=== PATIENT | female | born 1990 | race Two or more races ===

== ENCOUNTER 2024-06-11 13:00 | Outpatient (RCR) | payer MEDICAID, SELFPAY ==
--- NOTE | 2024-05-24 10:18 | PT.ODAYNRPT ---
PT Outpatient Daily Note OP Daily Note Outpatient Physical Therapy Treatment Date: 05/24/24 Visit Reasons: Low back pain Subjective: Pt's back is about the same. Pt has not been able to come consistently due to no physiognomist. Objective: Please see flow chart list of ther ex performed Assessment: tolerate standing extension, however, minimal pain in right LE post exercise Plan: Continue with PT Length of Time (minutes) of Treatment: 30 Minutes Procedure Charges Therapeutic Exercise 30 minutes: Yes
--- NOTE | 2024-05-28 10:30 | PT.ODAYNRPT ---
PT Outpatient Daily Note OP Daily Note Outpatient Physical Therapy Treatment Date: 05/28/24 Visit Reasons: Low back pain Subjective: Pt's back is the same. Pt continues to have pain down the right leg. physical therapy is helping minimally Objective: Please see flow chart for list of ther ex performed Assessment: no change in pain or symptoms post PT session. Pt able to tolerate increase standing extension reps with less reported pain this session Plan: Continue with PT Length of Time (minutes) of Treatment: 30 Minutes Procedure Charges Therapeutic Exercise 30 minutes: Yes
--- NOTE | 2024-06-04 10:23 | PT.ODAYNRPT ---
PT Outpatient Daily Note OP Daily Note Outpatient Physical Therapy Treatment Date: 06/04/24 Visit Reasons: Low back pain Subjective: Pt's back is same. Pt is ready to be release and return back to provider after her last session. Pt mention she breast feed sidelying Objective: Please see flow chart for list of ther ex performed Assessment: minimal progress with physical therapy; patient continues to report of hypomobilty and stiffness. Pt educated to switch position with breast feeding to see if it alleviate back pain Plan: Continue with PT Length of Time (minutes) of Treatment: 30 Minutes Procedure Charges Therapeutic Exercise 30 minutes: Yes
--- NOTE | 2024-06-11 15:26 | PT.ODS1RPT ---
PT OP Progress/Discharge Note Date of Service: 06/11/24 Progress Note/DC Note Progress Note/Discharge Note: DC Note Patient Information Visit Reasons: Low back pain Medical Diagnosis: M54.41 Treatment Dx #1: Back Pain Service Discharge Date: 06/11/24 Status Subjective: Pt's back continues to hurt with pain down the legs. Pt has limitation with standing, walking, chores, taking care of her baby, and recreational activities. Objective: L/S AROM: all motions are WNL Hip PROM: all motions are WFL Hip MMTs: grossly 3+/5 Special Test (+) SLR (+) slump Assessment: Pt continues to have back pain with mobility deficits leading to difficulty with ADLs. Pt will no longer benefit from physical therapy due to minimal progress towards goals. Recommend lumbar spine MRI to help rule in/out nature of pain. Pt was instructed on HEP last session and educated to continue exercises to maintain overall mobility; thank you for your referrals. Plan: D/C home with HEP and follow up with MD GARZA Procedure Charges Therapeutic Exercise 30 minutes: Yes
== END 2024-06-19 23:59 | disposition home or self-care (01) ==
LOC: CPTX 13:00
PROVIDERS: PCP Physician Assistant; Referring Provider Physician Assistant; Visit Provider Physician Assistant
DX: M54.41 Lumbago with sciatica, right side (principal)
CPT/HCPCS: 97110

== ENCOUNTER 2024-09-15 19:42 | Emergency (ER) | payer MEDICAID, SELFPAY ==
--- NOTE | 2024-09-15 19:46 | EKG_ITS ---
[facility] Test Date: 2024-09-15 Pat Name: CLARISSA NELSON Department: Room: - Gender: Female Cephalometric Tracer: : 1990 Requested By: Filemon Barkley Order Number: [id number] Reading MD: Filemon Barkley Measurements Intervals [place] Rate: 61 P: 66 MA: 185 QRS: 44 QRSD: 89 T: 50 QT: 407 QTc: 411 Interpretive Statements SINUS RHYTHM No previous ECG available for comparison /store/S0/[id number]/[id number].pdf
[2024-09-15 19:48] VITALS: BP 157/83; PULSE 68; RESP 19; TEMP 36.6; O2SAT 100; BMI 34.0
--- NOTE | 2024-09-15 19:48 | PD.EDADULT ---
ED General RME/HPI General Chief complaint: Nausea/Vomiting/Diarrhea Stated complaint: ABD PAIN Time Seen by Provider: 09/15/24 19:45 Arrival date/time: 09/15/24 19:42 CC: Abdominal pain with nausea vomiting HPI onset approximately 1 hour ago epigastric pain without any radiation prior history of similar events that went away on their own . Patient denies any active vomiting but is complaining of nausea. The patient's last menstrual cycle was 1 year ago patient stopped breast-feeding 1 week ago with her child. Patient denies fever chills chest pain shortness of breath or difficulty breathing. Related Data Home Medications ?Medication ?Instructions ?Recorded ?Confirmed vits no.124-ferrous fum 1 tab PO QDAY 06/15/23 08/23/23 27 mg iron-folic acid 800 mcg tablet ( Vitamin) Previous Rx's ?Medication ?Instructions ?Recorded meloxicam 7.5 mg tablet 7.5 mg PO QDAY #10 tabs 09/15/24 ondansetron 4 mg disintegrating 4 mg PO Q8H #14 tabs 09/15/24 tablet Allergies Allergy/AdvReac Type Severity Reaction Status Date / Time No Known Allergies Allergy Verified 09/15/24 19:49 Review of Systems Review of Systems Narrative Review of Systems: GEN: No fever, no chills, no weight loss EYES: No discharge, no visual changes, no pain HEENT: No ear pain, no congestion, no sore throat PULM: No shortness of breath, no cough, no congestion CV: No chest pain, no dyspnea on exertion, no palpitations GI: No nausea, no vomiting, no diarrhea, + pain, no constipation : No frequency, no urgency, no dysuria MUSC/SKEL: No joint pain, no back pain SKIN: No rash PSYCH: No hallucinations, no depression HEME/LYMPH: No easy bleeding or bruising tendencies NEURO: No weakness, no headache Past Medical History Past Medical History NEUROLOGIC: Negative Neurological Disorders or Seizures CARDIAC: Negative Cardiac Disorders or Congestive Heart Failure RESPIRATORY: Negative Chronic Obstructive Pulmonary Disease (COPD) or Asthma GASTROINTESTINAL: Negative Gastrointestinal Disorders, Hepatitis or Colorectal Cancer GENITOURINARY: Negative Genitourinary Disorders, Renal Disease or Prostate Cancer REPRODUCTIVE: Positive Genital Herpes and Previous Pregnancies; Negative Breast Cancer, Endometriosis, Pelvic Inflammatory Disease, Testicular Cancer or Uterine Prolapse MUSCULOSKELETAL: Positive Musculoskeletal Disorders; Negative Bone Cancer ENDOCRINE: Negative Endocrine Disorders, Diabetes Mellitus Type 1 or Diabetes Mellitus Type 2 HEMATOLOGIC: Positive Blood Disorders ( HEMORRHAGE), Anemia (12 years old) and Clotting Problems (BLOOD CLOT IN LEG); Negative Leukemia, Hemophilia, Thalassemia or Sickle Cell Disease PSYCHO/SOCIAL: Positive Depression OTHER HISTORY: Positive Chicken Pox (child); Negative Hospitalization, Autoimmune Disease, Down Syndrome, Developmental Delay, Shingles, Falls, Blood Transfusions, Blood Transfusion Reaction, Anesthesia Reactions, Organ Transplant, Chemotherapy, Radiation Therapy, Hyperbaric Therapy, MRSA, VRSA, Vancomycin-Resistant Enterococci, Human Immunodeficiency Virus (HIV), Measles, Mumps, Rubella (English Measles), Pertussis, Clostridium Difficile, Cancer, Breast Cancer, Cervical Cancer, Colorectal Cancer, Lung Cancer, Ovarian Cancer, Prostate Cancer or Testicular Cancer Family History FAMILY HISTORY: Positive Family Cardiac Disorders (MOTHER-HTN); Negative Family Psychiatric Problems, Family Respiratory Disorders, Family Gastrointestinal Problems, Family Cancer, Family Surgery or Family Anesthesia Reaction Surgical History SURGICAL: Positive Oral Surgery (WISDOM TEETH REMOVED 2008); Negative Section or Organ Transplant Social History SMOKING STATUS: Never smoker SECOND HAND EXPOSURE: No ED Exam Narrative Physical exam: [General: In moderate discomfort but not in any acute distress Head normocephalic HEENT: Within acceptable limits Neck is supple nontender Chest equal chest rise nontender to palpation Respiratory: Clear to auscultation no wheezes crackles or rubs CV: Rate rhythm is regular no murmurs rubs or clicks Abdomen profound tenderness with epigastric palpation reflexive guarding no rebound tenderness no left upper or right upper quadrant tenderness with palpation. Back: No CVA tenderness no spinous process tenderness from cervical spine thoracic and lumbar spine Skin: Intact no petechiae rash induration ulceration or crepitus Extremities: Moving all extremity against resistance cap refill less than 2 seconds neurosensory intact Neuro: Awake alert oriented x3 Glascow coma 15 no focal deficits] Course Quality Measures none Orders Category Date Time Status Bedside COVID-19 Antigen Test NOW Care 09/15/24 20:42 Active Bedside Influenza A&B Antigen Test NOW Care 09/15/24 20:42 Completed EKG (ED ONLY) *Do not use* NOW Care 09/15/24 19:46 Completed Saline [Insert IV] NOW Care 09/15/24 19:46 Active EKG (ED Only) Stat Exams 09/15/24 19:46 Draft US gall bladder Stat Exams 09/15/24 20:08 Completed B-Type Natriuretic Peptide Stat Lab 09/15/24 20:00 Completed CBC Stat Lab 09/15/24 20:00 Completed Comprehensive Metabolic Panel Stat Lab 09/15/24 20:00 Completed Drug Screen,Urine Stat Lab 09/15/24 20:47 Completed HCG,Qualitative Serum Stat Lab 09/15/24 20:00 Completed Lipase Stat Lab 09/15/24 20:00 Completed Magnesium Stat Lab 09/15/24 20:00 Completed Partial Thromboplastin Time Stat Lab 09/15/24 20:00 Completed Prothrombin Time with INR Stat Lab 09/15/24 20:00 Completed Urinalysis Stat Lab 09/15/24 20:43 Completed Lidocaine 2% Viscous [Xylocaine 2% Viscous] Med 09/15/24 19:46 Discontinued 15 ml PO X1 ONE Morphine Inj Med 09/15/24 20:51 Discontinued 4 mg IVP X1 ONE Ondansetron Inj [Zofran Inj] Med 09/15/24 19:46 Discontinued 4 mg IV X1 ONE Sodium Chloride 0.9% 1000 ml [Ns] 1,000 ml Med 09/15/24 19:47 Discontinued IV 999 mls/hr mg Hyd/Al Hyd/Myrna Susp [Maalox Susp] Med 09/15/24 19:46 Discontinued 30 ml PO X1 ONE Vital Signs Vital signs: Vital Signs Temperature 97.9 F 09/15/24 19:48 Pulse Rate 68 09/15/24 19:48 Respiratory Rate 19 09/15/24 19:48 Blood Pressure 157/83 H 09/15/24 19:48 Pulse Oximetry (%) 100 09/15/24 19:48 Oxygen Delivery Method Nasal Cannula 09/15/24 19:48 Oxygen Flow Rate 6 09/15/24 19:48 [facility] Patient data External records reviewed:: [facility] previous records and EMS form Clinical information provided by:: patient and EMS Social determinants that could affect healthcare access:: none Patient has the following chronic illnesses:: None How is presenting disease/condition affected by chronic disease/condition?: uneffected by Evaluation data The following diagnostics were reviewed and interpreted by me:: lab results and radiology exam(s) Lab and/or radiology exams considered but not ordered:: EKG performed at 2007 shows ventricular rate of 61 MO interval 185 QRS of 8 9 QTc 410 is normal sinus rhythm. CBC shows no acute leukocytosis anemia thrombocytopenia CMP PE shows potassium of 3.3 mild transaminitis but no T. bili elevation Lipase is 39 Magnesium 2.0 Ultrasound shows the patient has a cholelithiasis without cholecystitis. Interpretation Summary: Cholelithiasis without cystitis. Patient to be discharged home for follow-up Medications Medications considered but not ordered:: None Medication administrations:: Medication Administration History Discontinued Medications Al Hydrox/Mg Hydrox/Simethicone (Mg Hyd/Al Hyd/Myrna (Maalox Reg) Susp 30 Ml Udc) 30 ml PO X1 ONE Stop: 09/15/24 19:47 Last Admin: 09/15/24 20:33 Dose: 30 ml Documented By: SANDER Sodium Chloride (Ns) 1,000 mls @ 999 mls/hr IV .Q1H1M ONE Stop: 09/15/24 20:47 Last Admin: 09/15/24 20:33 Dose: 999 mls/hr Documented By: SANDER Lidocaine HCl (Lidocaine Viscous 2% 15 Ml Udc) 15 ml PO X1 ONE Stop: 09/15/24 19:47 Last Admin: 09/15/24 20:33 Dose: 15 ml Documented By: SANDER Morphine Sulfate (Morphine Sulf Inj 10 Mg/Ml Vial) 4 mg IVP X1 ONE Stop: 09/15/24 20:52 Last Admin: 09/15/24 21:00 Dose: 4 mg Documented By: ALETHEA Comments: Ondansetron HCl (Ondansetron Inj 2 Mg/Ml Inj 2 Ml) 4 mg IV X1 ONE; Protocol Stop: 09/15/24 19:47 Last Admin: 09/15/24 20:33 Dose: 4 mg Documented By: SANDER None Consultations Consultation(s) initiated? (list below): No Diagnosis Differential Diagnosis ED Complaint MDM: Cholelithiasis choledocholithiasis cholecystitis Most likely diagnosis given after review of the tests above:: Cholelithiasis abdominal pain Admission Indicated Admission indicated?: not indicated Explain why admission is indicated or not indicated:: Stable for outpatient follow-up Admission Request Was there a request for admission?: No Disposition Plan Disposition Plan: Discharge Discharge Attestation Discharge Attestation: The patient and all family members were given an opportunity to ask questions and understood the discharge instructions. Discharge instructions specifically effects, indications for sooner follow up or return to the emergency department, and the expected course of current diagnosis. Patient condition: Stable Medical Decision Making Differential Diagnosis Differential Diagnosis: Cholelithiasis choledocholithiasis cholecystitis Lab Data 09/15/24 20:00 09/15/24 20:00 Labs: Lab Results 09/15/24 09/15/24 09/15/24 Range/Units 20:00 20:43 20:47 WBC 10.3 (3.6-11.0) Thou/mm3 RBC 4.68 (4.00-5.20) Miln/mm3 Hgb 14.0 (12.0-16.0) g/dL Hct 40.8 (36.0-46.0) % MCV 87 (80-100) fL MCH 29.9 (25.0-35.0) pg MCHC 34.3 (31.0-37.0) g/dl RDW Std Deviation 39.7 (36.4-46.3) fL Plt Count 231 (140-440) Thou/mm3 Neut % (Auto) 50 (37-80) % Lymph % (Auto) 37 (10-50) % Rowan % (Auto) 10 (0-12) % Eos % (Auto) 2 (0-10) % Baso % (Auto) 0 (0-2.5) % Neut # (Auto) 5.1 (1.8-7.7) Thou/mm3 Lymph # (Auto) 3.8 (1.0-4.8) Thou/mm3 Rowan # (Auto) 1.0 H (0.0-0.8) Thou/mm3 Eos # (Auto) 0.2 (0.0-0.5) Thou/mm3 Baso # (Auto) 0.0 (0.0-0.2) Thou/mm3 Immature Gran # (Auto) 0.02 H (0.00-0.00) Thou/mm3 Absolute Nucleated RBC 0.00 (0.00-0.00) Thou/mm3 Immature Gran % 0 (0-0) % Nucleated RBC % 0 (0) /100 WBC PT 10.9 (9.0-12.2) Seconds INR 1.0 (0.9-1.3) APTT 28.2 (22.0-36.0) Seconds Sodium 141 (136-145) mMol/L Potassium 3.3 L (3.4-5.1) mMol/L Chloride 104 (98-107) mMol/L Carbon Dioxide 27.1 (20.0-31.0) mMol/L Anion Gap 10 (7-16) BUN 17 (9-23) mg/dL Creatinine 0.8 (0.6-1.3) mg/dL Estim Creat Clear Calc 126.2 (>60) mL/min eGFR > 60 (60 - ) See Note BUN/Creatinine Ratio 21 H (12-20) Ratio Glucose 103 (74-106) mg/dL Calculated Osmolality 282 (275-295) Calcium 9.8 (8.3-10.6) mg/dL Corrected Calcium 9.8 (8.5-10.1) mg/dL Magnesium 2.0 (1.6-2.6) mg/dL Total Bilirubin 0.3 (0.3-1.2) mg/dL AST 72 H (0-34) U/L ALT 69 H (10-49) U/L Alkaline Phosphatase 149 H (46-116) U/L B-Natriuretic Peptide < 20 (0-100) pg/mL Total Protein 7.6 (5.7-8.2) gm/dL Albumin 4.6 (3.5-5.0) gm/dL Globulin 3.0 (2.3-3.5) gm/dL Albumin/Globulin Ratio 1.5 (1.2-2.2) Lipase 39 (12-53) U/L HCG, Qual Negative Ur Collection Type Clean Catch Urine Color Lt-Yellow (Lt Yel-Yel) Urine Clarity Clear (Clear/Hazy) Urine pH 8.5 H (5.0-7.0) Ur Specific Randolph 1.025 (1.001-1.035) Urine Protein 1+ A (Neg - Trace) Urine Glucose (UA) Negative (Negative) Urine Ketones Negative (Negative) Urine Blood Negative (Negative) Urine Nitrite Negative (Negative) Urine Bilirubin Negative (Negative) Urine Urobilinogen (Auto) Negative (0.0-1.0) mg/dL Ur Leukocyte Esterase Negative (Negative) Urine RBC 0 (0-3) /hpf Urine WBC 1 (0-5) /hpf Ur Squamous Epith Cells 1 (0-5) /hpf Urine Bacteria None (None) Urine Opiates Screen Negative (Negative) Urine Fentanyl Screen Negative (Negative) Ur Barbiturates Screen Negative (Negative) U Amphetamin/Meth Scrn Negative (Negative) U Benzodiazepines Scrn Negative (Negative) U Cocaine Metab Screen Negative (Negative) U Marijuana (THC) Screen Negative (Negative) Discharge Plan Plan Patient Disposition: HOME (Self Care) Patient condition on transfer: Stable Prescriptions/Referrals Prescriptions/Med Rec: New ondansetron 4 mg tablet,disintegrating 4 mg PO Q8H Qty: 14 0RF meloxicam 7.5 mg tablet 7.5 mg PO QDAY Qty: 10 0RF No Action Vitamin 27 mg iron- 800 mcg Tablet 1 tab PO QDAY Referrals: Murray French MD [Primary Care Provider] - In 1 week Eda Ponce MD [Physician] - In 1 week Problem List Clinical Impression: Abdominal pain, Nausea, Cholelithiasis Patient/Caregiver Discharge Instructions Education Materials: ED Diet, [place] (Adult), ED Gallstones with Biliary Colic Print Language: Setswana Stand Alone Forms: Katina Award Info., Patient Portal Info Letter, Work/School Release PA/[employer] Supervising Physician PA/[employer] Supervising Physician: Filemon Hernandez ENP
[2024-09-15 19:50] VITALS: PULSE 73; RESP 20; BMI 34.0
--- NOTE | 2024-09-15 20:08 | XR_ITS ---
Examination: Abdomen sonogram, Limited Date and time of exam: September 15, 2024 2056 hrs. Indications: Right upper abdominal pain and tenderness today Technique: Real-time ferreira scale transabdominal sonographic images of the upper abdomen obtained. Findings: Gallbladder sludge multiple gallstones Gallbladder wall 0.3 cm Common bile duct 0.2 cm Pancreatic 2.4 cm Liver 20.3 cm fatty infiltration no focal liver lesions Normal hepatopedal portal venous oh Patent IVC Impression: Cholelithiasis, negative for cholecystitis Significant hepatomegaly fatty liver
[2024-09-15 20:14] LABS: Basophils % (Auto) 0 % (0-2.5); Eosinophils # (Auto) 0.2 Thou/mm3 (0.0-0.5); Eosinophils % (Auto) 2 % (0-10); Hematocrit 40.8 % (36.0-46.0); Immature Granulocytes % (Auto) 0 % (0-0); Immature Granulocytes Auto 0.02 Thou/mm3 (0.00-0.00); Lymphocytes # (Auto) 3.8 Thou/mm3 (1.0-4.8); Lymphocytes % (Auto) 37 % (10-50); Mean Corpuscular HGB Conc 34.3 g/dl (31.0-37.0); Mean Corpuscular Hemoglobin 29.9 pg (25.0-35.0); Mean Corpuscular Volume 87 fL (80-100); Monocytes % (Auto) 10 % (0-12); Neutrophils # (Auto) 5.1 Thou/mm3 (1.8-7.7); Neutrophils % (Auto) 50 % (37-80); Nucleated Red Blood Cell % 0 /100 WBC (0); Platelet Count 231 Thou/mm3 (140-440); RDW Standard Deviation 39.7 fL (36.4-46.3); Red Blood Count 4.68 Miln/mm3 (4.00-5.20); White Blood Count 10.3 Thou/mm3 (3.6-11.0)
[2024-09-15 20:31] LABS: B-Type Natriuretic Peptide < 20 pg/mL (0-100)
[2024-09-15 20:32] LABS: Alanine Aminotransferase 69 U/L (10-49); Albumin, Serum 4.6 gm/dL (3.5-5.0); Albumin/Globulin Ratio 1.5 (1.2-2.2); Alkaline Phosphatase 149 U/L (46-116); Anion Gap 10 (7-16); Aspartate Amino Transferase 72 U/L (0-34); BUN/Creatinine Ratio 21 Ratio (12-20); Bilirubin,Total 0.3 mg/dL (0.3-1.2); Blood Urea Nitrogen 17 mg/dL (9-23); Calcium 9.8 mg/dL (8.3-10.6); Calcium (Corrected) 9.8 mg/dL (8.5-10.1); Carbon Dioxide 27.1 mMol/L (20.0-31.0); Chloride 104 mMol/L (98-107); Creatinine (Component) 0.8 mg/dL (0.6-1.3); Estimated Creatinine Clearance 126.2 mL/min (>60); Glucose 103 mg/dL (74-106); Lipase 39 U/L (12-53); Osmolality,Calculated 282 (275-295); Potassium 3.3 mMol/L (3.4-5.1); Sodium 141 mMol/L (136-145); Total Protein 7.6 gm/dL (5.7-8.2); eGFR > 60 See Note
[2024-09-15] MEDS: LIDOCAINE VISCOUS 2% 15 ML UDC PO (20:33)
[2024-09-15] MEDS: SODIUM CHLORIDE 0.9% 1000 ML 1,000 ML 999 ML IV (20:33)
[2024-09-15] MEDS: ONDANSETRON INJ 2 MG/ML INJ 2 ML 4 MG IV (20:33)
[2024-09-15] MEDS: MG HYD/AL HYD/SIME (Maalox Reg) SUSP 30 ML UDC PO (20:33)
[2024-09-15 20:48] LABS: HCG,Qualitative Serum Negative
[2024-09-15 20:50] LABS: Collection Type, Urine Clean Catch; RBC,Urine 0 /hpf (0-3)
[2024-09-15 20:59] LABS: Partial Thromboplastin Time 28.2 Seconds (22.0-36.0); Prothrombin Time 10.9 Seconds (9.0-12.2)
[2024-09-15 20:59] LABS: Bilirubin,Urine Negative (Negative); Blood,Urine Negative (Negative); Clarity,Urine Clear (Clear/Hazy); Color,Urine Lt-Yellow (Lt Yel-Yel); Glucose, Urine Negative (Negative); Ketones,Urine Negative (Negative); Leukocyte Esterase,Urine Negative (Negative); Nitrite,Urine Negative (Negative); PH,Urine 8.5 (5.0-7.0); Protein,Urine 1+ (Neg - Trace); Specific Gravity,Urine 1.025 (1.001-1.035); Squamous Epithelial Cell,Urine 1 /hpf (0-5); Urobilinogen,Urine Negative mg/dL (0.0-1.0); WBC,Urine 1 /hpf (0-5)
[2024-09-15] MEDS: MORPHINE SULF INJ 10 MG/ML VIAL 4 MG IVP (21:00)
[2024-09-15 21:01] LABS: Amphetamine/Methamp Scrn,U Negative (Negative); Barbiturate Screen,Urine Negative (Negative); Benzodiazepines Screen,Urine Negative (Negative); Benzoylecgonine Screen, Ur Negative (Negative); Fentanyl Screen,Urine Negative (Negative); Opiate Screen,Urine Negative (Negative); THC Screen,Urine Negative (Negative)
[2024-09-15 22:15] VITALS: BP 131/85; PULSE 53; RESP 17; TEMP 36.6; O2SAT 97
[2024-09-15] MEDS: METOCLOPRAMIDE INJ 5 MG/ML VIAL 2 ML 10 MG IM (22:57)
== END 2024-09-15 23:42 | disposition home or self-care (01) ==
PROVIDERS: Registered Nurse General Practice; Emergency Provider Emergency Medicine; PCP Family Medicine
DX: K80.70 Calculus of gallbladder and bile duct without cholecystitis without obstruction (principal)
CPT/HCPCS: 36415; 76705; 80053; 80307; 81001; 83690; 83735; 83880; 84703; 85025; 85610; 85730; 87400; 87811; 96361; 96372; 96374; 96375; 99284; J2270; J2405; J2765; J3490; J7030; A9270

== ENCOUNTER 2024-09-17 15:08 | Day surgery (SDC) | payer MEDICAID, SELFPAY ==
[2024-09-17 15:09] VITALS: BMI 34.0
[2024-09-17 15:25] VITALS: BP 151/99; PULSE 73; RESP 24; TEMP 36.7; O2SAT 99
--- NOTE | 2024-09-17 15:42 | XR_ITS ---
Examination: Abdomen sonogram, Limited Date and time of exam: September 09, 2024 at 1600 hrs. Indications: Severe right upper abdominal pain and tenderness beginning 4 days ago worse today Technique: Real-time ferreira scale transabdominal sonographic images of the upper abdomen obtained. Findings: Multiple gallstones Gallbladder wall 0.3 cm Gallbladder sludge Common bile duct 0.4 cm Pancreatic head 2.9 cm Liver 17.6 cm fatty infiltration smooth contour no focal liver lesions Normal hepatopedal portal venous flow Patent IVC Impression: Cholelithiasis, negative for cholecystitis Mild hepatomegaly fatty liver
--- NOTE | 2024-09-17 15:43 | PD.EDRME ---
Rapid Medical Screening Exam RME Arrival date/time: 09/17/24 15:08 34-year-old female with no known medical history presents to the emergency room with a chief complaint of right upper quadrant 10 out of 10 abdominal pain, nausea. Patient was seen here 2 days ago and was discharged with gallstones. I have greeted and performed a focused initial assessment of this patient. A comprehensive ED assessment and evaluation of the patient, analysis of all test results, and completion of the medical decision making process will be conducted by additional ED providers. Vital signs: Vital Signs Temperature 98.1 F 09/17/24 15:25 Pulse Rate 73 09/17/24 15:25 Respiratory Rate 24 H 09/17/24 15:25 Blood Pressure 151/99 H 09/17/24 15:25 Pulse Oximetry (%) 99 09/17/24 15:25 Oxygen Delivery Method Room Air 09/17/24 15:25 Vital signs reviewed by provider: Yes
[2024-09-17] MEDS: KETOROLAC INJ 60 MG/2 ML VIAL 30 MG IM (15:57)
[2024-09-17] MEDS: ONDANSETRON ODT 4 MG TABRAP PO (15:57)
[2024-09-17 16:11] LABS: Collection Type, Urine Clean Catch
[2024-09-17 16:15] LABS: Basophils % (Auto) 0 % (0-2.5); Eosinophils # (Auto) 0.1 Thou/mm3 (0.0-0.5); Eosinophils % (Auto) 1 % (0-10); Hemoglobin 14.4 g/dL (12.0-16.0); Immature Granulocytes % (Auto) 0 % (0-0); Immature Granulocytes Auto 0.03 Thou/mm3 (0.00-0.00); Lymphocytes # (Auto) 2.8 Thou/mm3 (1.0-4.8); Lymphocytes % (Auto) 22 % (10-50); Mean Corpuscular HGB Conc 34.3 g/dl (31.0-37.0); Mean Corpuscular Hemoglobin 29.7 pg (25.0-35.0); Mean Corpuscular Volume 87 fL (80-100); Monocytes # (Auto) 1.2 Thou/mm3 (0.0-0.8); Monocytes % (Auto) 10 % (0-12); Neutrophils # (Auto) 8.2 Thou/mm3 (1.8-7.7); Neutrophils % (Auto) 66 % (37-80); Nucleated Red Blood Cell % 0 /100 WBC (0); Platelet Count 243 Thou/mm3 (140-440); RDW Standard Deviation 39.8 fL (36.4-46.3); Red Blood Count 4.85 Miln/mm3 (4.00-5.20); White Blood Count 12.4 Thou/mm3 (3.6-11.0)
[2024-09-17 16:22] LABS: HCG Qualitative,Urine Negative
[2024-09-17 16:31] LABS: Bilirubin,Urine Negative (Negative); Blood,Urine Negative (Negative); Clarity,Urine Turbid (Clear/Hazy); Color,Urine Lt-Yellow (Lt Yel-Yel); Glucose, Urine Negative (Negative); Ketones,Urine Negative (Negative); Leukocyte Esterase,Urine Negative (Negative); Nitrite,Urine Negative (Negative); Protein,Urine Negative (Neg - Trace); RBC,Urine 3 /hpf (0-3); Specific Gravity,Urine 1.013 (1.001-1.035); Squamous Epithelial Cell,Urine 6 /hpf (0-5); Urobilinogen,Urine Negative mg/dL (0.0-1.0); WBC,Urine 3 /hpf (0-5)
[2024-09-17 16:35] LABS: Alanine Aminotransferase 201 U/L (10-49); Albumin, Serum 4.8 gm/dL (3.5-5.0); Albumin/Globulin Ratio 1.5 (1.2-2.2); Alkaline Phosphatase 155 U/L (46-116); Anion Gap 10 (7-16); Aspartate Amino Transferase 217 U/L (0-34); BUN/Creatinine Ratio 17 Ratio (12-20); Blood Urea Nitrogen 15 mg/dL (9-23); Calcium 10.3 mg/dL (8.3-10.6); Calcium (Corrected) 10.3 mg/dL (8.5-10.1); Carbon Dioxide 27.7 mMol/L (20.0-31.0); Chloride 106 mMol/L (98-107); Creatinine (Component) 0.9 mg/dL (0.6-1.3); Estimated Creatinine Clearance 112.2 mL/min (>60); Globulin 3.1 gm/dL (2.3-3.5); Glucose 107 mg/dL (74-106); Lipase 42 U/L (12-53); Osmolality,Calculated 287 (275-295); Potassium 3.4 mMol/L (3.4-5.1); Sodium 144 mMol/L (136-145); Total Protein 7.9 gm/dL (5.7-8.2); eGFR > 60 See Note
[2024-09-17] MEDS: HYDROcodone/APAP 5/325 TABLET 1 TAB PO (16:58)
--- NOTE | 2024-09-17 19:32 | EDNOTE_ITS ---
ED Abdominal Pain RME/HPI General Chief Complaint: Abdominal Pain Stated complaint: ABD PAIN SINCE 100 TODAY, HX GALL STONES Time seen by provider: 09/17/24 16:58 Arrival date/time: 09/17/24 15:08 This is a 34-year-old female presented to the emergency department with complaints of right upper quadrant abdominal pain that worsened around 10 AM. She does report history of cholelithiasis. She was recently evaluated in the emergency department on 225 was discharged with a diagnosis of cholelithiasis no cholecystitis. Was instructed to follow-up with her PCP. She does report she was seen her PCP however the pain worsened. Reports she began to have nausea and vomiting prompting her ED visit on the second occasion. She denies having fever or chills. Source: patient RME / HPI RME / HPI narrative: 09/17/24 15:08 34-year-old female with no known medical history presents to the emergency room with a chief complaint of right upper quadrant 10 out of 10 abdominal pain, nausea. Patient was seen here 2 days ago and was discharged with gallstones. I have greeted and performed a focused initial assessment of this patient. A comprehensive ED assessment and evaluation of the patient, analysis of all test results, and completion of the medical decision making process will be conducted by additional ED providers. Related Data Home Medications ?Medication ?Instructions ?Recorded ?Confirmed vits no.124-ferrous fum 1 tab PO QDAY 3 08/23/23 27 mg iron-folic acid 800 mcg tablet ( Vitamin) Previous Rx's ?Medication ?Instructions ?Recorded meloxicam 7.5 mg tablet 7.5 mg PO QDAY #10 tabs 08/22 01/12 ondansetron 4 mg disintegrating 4 mg PO Q8H #14 tabs 0 09/15/24 tablet hydrocodone 5 mg-acetaminophen 325 1 tab PO Q6H PRN pa in #20 tabs 09/18/24 mg tablet Allergies Allergy/AdvReac Type Severity Reaction Status Date / Time No Known Allergies Allergy Verified 09/19/24 13:32 Review of Systems Review of Systems Systems Reviewed: All systems reviewed, normal except as documented Narrative Review of Systems: Gen: No fever, no chills, no weight loss EYES: No discharge, no visual changes, no pain HEENT: No ear pain, no congestion, no sore throat PULM: No shortness of breath, no cough, no congestion CV: No chest pain, no dyspnea on exertion, no palpitations GI: Positive nausea, positive vomiting, no diarrhea, abdominal pain, no constipation : No frequency, no urgency, no dysuria Musc/skel: No joint pain, no back pain Skin: No rash Psyc: No hallucinations, no depression Heme/Lymph: No easy bleeding or bruising tendencies Neuro: No weakness, no headache ED Exam Narrative Physical exam: General: 34-year-old female in mild distress due to pain actively vomiting during my examination HENT: normocephalic, atraumatic, EOMI, PERRLA, moist mucous membranes Chest: chest wall is nontender Cardiac: regular rate and rhythm, normal S1 and S2, no murmurs, rubs, or gallops, capillary refill ?2 seconds Pulmonary: clear to auscultation bilaterally, no wheezing, crackles, or rhonchi Abdominal: active bowel sounds, soft, epigastric right upper quadrant tenderness. Neuro: A&OX3, CN II-XII intact, sensation grossly intact bilaterally in UE and LE. Skin: no rashes, no ecchymosis Ext: no lower extremity edema Course Quality Measures none Orders Category Date Time Status Patient Condition Routine Admission 09/18/24 10:[address] in Surgical Day Care Routine Admission 09/18/24 10:01 Active Activity as Tolerated Routine Care 09/18/24 10:01 Ordered DC Home When Criteria Met . Care 09/18/24 12:22 Completed Insert IV NOW Care 09/17/24 19:27 Completed MRI Screening NOW Care 09/17/24 19:28 Completed NPO NOW Care 09/18/24 10:02 Completed Obtain Written Consent For: NOW Care 09/18/24 10:01 Completed Diet NPO (NOW) Diet 09/18/24 10:02 Active Discharge Routine Discharge 09/18/24 13:43 Active MR MRCP Stat Exams 09/18/24 Completed US gall bladder Stat Exams 09/17/24 15:42 Completed CBC Stat Lab 09/17/24 15:55 Completed CMP [Comprehensive Metabolic Panel] Stat Lab 09/17/24 15:55 Completed HCG Qualitative,Urine Stat Lab 09/17/24 14:57 Completed Lipase Stat Lab 09/17/24 15:55 Completed UA [Urinalysis] Stat Lab 09/17/24 14:57 Completed Urine Culture Stat Lab 09/17/24 14:57 Completed Acetaminophen Ivpb [Ofirmev Inj] Med 09/18/24 12:23 Discontinued 1,000 mg in 100 ml IV Q6HR Bupivacaine Mpf/Epi 0.5% [Sensorcaine-Mpf Inj 0.5% w/ Med 09/18/24 12:00 Discontinued Epi] 30 ml .ROUTE .STK-MED ONE Dexamethasone Inj [Decadron Inj] Med 09/18/24 12:13 Discontinued 10 mg .ROUTE .STK-MED ONE HYDROcodone*/APAP 5/325 [[place] 5/325] Med 09/17/24 15:42 Discontinued 1 tab PO X1 ONE HYDROmorphone INJ [Dilaudid Inj] Med 09/18/24 12:22 Discontinued 0.4 mg IV Q5M PRN Ketorolac Inj [Toradol Inj] Med 09/18/24 12:13 Discontinued 30 mg .ROUTE .STK-MED ONE Ketorolac Inj [Toradol Inj] Med 09/17/24 15:44 Discontinued 30 mg IM X1 ONE Midazolam Inj [Versed Inj] Med 09/18/24 12:10 Discontinued 2 mg .ROUTE .STK-MED ONE Morphine Inj Med 09/18/24 12:22 Discontinued 3 mg IV Q5M PRN Morphine Inj Med 09/17/24 19:27 Discontinued 5 mg IVP X1 ONE Ondansetron Inj [Zofran Inj] Med 09/18/24 12:13 Discontinued 4 mg .ROUTE .STK-MED ONE Ondansetron Inj [Zofran Inj] Med 09/17/24 19:27 Discontinued 4 mg IV X1 ONE Ondansetron Inj [Zofran Inj] Med 09/18/24 10:13 Discontinued 4 mg IV X1 ONE Ondansetron Inj [Zofran Inj] Med 09/18/24 12:22 Discontinued 4 mg IV X1 ONE Ondansetron Odt [Zofran Odt] Med 09/17/24 15:42 Discontinued 4 mg PO X1 ONE Propofol Inj [Diprivan Inj] Med 09/18/24 12:10 Discontinued 200 mg IV .STK-MED ONE Sodium Chloride 0.9% 1000 ml [Ns] 1,000 ml Med 09/18/24 10:15 Discontinued IV 100 mls/hr Sodium Chloride 0.9% 1000 ml [Ns] 1,000 ml Med 09/17/24 19:27 Discontinued IV 999 mls/hr Sugammadex Inj [Bridion Inj] Med 09/18/24 12:10 Discontinued 200 mg .ROUTE .STK-MED ONE fentaNYL INJ [Sublimaze Inj] Med 09/18/24 12:10 Discontinued 100 mcg .ROUTE .STK-MED ONE fentaNYL INJ [Sublimaze Inj] Med 09/18/24 12:22 Discontinued 25 mcg IV Q5M PRN Code Status Routine Oth 09/18/24 10:01 Completed Oxygen Delivery PRN RT 09/18/24 12:22 Completed Vital Signs Vital signs: Vital Signs Temperature 98.1 F 09/17/24 15:25 Pulse Rate 73 09/17/24 15:25 Respiratory Rate 24 H 09/17/24 15:25 Blood Pressure 151/99 H 09/17/24 15:25 Pulse Oximetry (%) 99 09/17/24 15:25 Oxygen Delivery Method Room Air 09/17/24 15:25 Abdominal Pain MDM Patient data External records reviewed:: [facility] previous records Clinical information provided by:: patient Social determinants that could affect healthcare access:: none Patient has the following chronic illnesses:: No chronic history How is presenting disease/condition affected by chronic disease/condition?: no chronic disease Evaluation data The following diagnostics were reviewed and interpreted by me:: lab results and radiology exam(s) Lab and/or radiology exams considered but not ordered:: No Interpretation Summary: see above Medications / Prescriptions Medications or Prescriptions considered but not ordered:: No Medication administrations:: Medication Administration History Discontinued Medications Hydrocodone Bitart/Acetaminophen (Hydrocodone/Apap 5/325 Tablet) 1 tab PO X1 ONE Stop: 09/17/24 15:43 Last Admin: 09/17/24 16:58 Dose: 1 tab Documented By: BD Bupivacaine HCl/Epinephrine Bitart (Bupivacaine Mpf/Epi 0.5% 30 Ml Vial 1:200,000) Confirm Administered Dose 30 ml .ROUTE .STK-MED ONE Stop: 09/18/24 12:01 Dexamethasone Sodium Phosphate (Dexamethasone Sod Phos Inj 10 Mg/Ml Vial) Confirm Administered Dose 10 mg .ROUTE .STK-MED ONE Stop: 09/18/24 12:14 Fentanyl Citrate (Fentanyl Cit Inj 50 Mcg/Ml Amp 2ml) Confirm Administered Dose 100 mcg .ROUTE .STK-MED ONE Stop: 09/18/24 12:11 Fentanyl Citrate (Fentanyl Cit Inj 50 Mcg/Ml Amp 2ml) 25 mcg IV Q5M PRN PRN Reason: PAIN SCALE 1-3 (mild Stop: 09/18/24 14:23 Hydromorphone HCl (Hydromorphone Inj 2 Mg/Ml Vial) 0.4 mg IV Q5M PRN PRN Reason: PAIN SCALE 7-10 (Severe Stop: 09/18/24 14:23 Last Admin: 09/18/24 14:39 Dose: 0.4 mg Documented By: ROSANNE Sodium Chloride (Ns) 1,000 mls @ 999 mls/hr IV .Q1H1M ONE Stop: 09/17/24 20:27 Last Infusion: 09/17/24 22:23 Dose: Infused Documented By: Admin: 09/17/24 20:37 Dose: 999 mls/hr Documented By: GREGG Sodium Chloride (Ns) 1,000 mls @ 100 mls/hr IV .Q10H GARCIA Stop: 10/18/24 10:14 Last Admin: 09/18/24 10:22 Dose: 100 mls/hr Documented By: LIAM Acetaminophen (Ofirmev Inj) 1,000 mg in 100 mls @ 250 mls/hr IV Q6HR GARCIA Stop: 09/19/24 06:23 Last Admin: 09/18/24 14:25 Dose: 250 mls/hr Documented By: ROSANNE Ketorolac Tromethamine (Ketorolac Inj 60 Mg/2 Ml Vial) 30 mg IM X1 ONE Stop: 09/17/24 15:45 Last Admin: 09/17/24 15:57 Dose: 30 mg Documented By: [facility] Ketorolac Tromethamine (Ketorolac Inj 30 Mg/Ml Vial) Confirm Administered Dose 30 mg .ROUTE .STK-MED ONE Stop: 09/18/24 12:14 Midazolam HCl (Midazolam Inj 1 Mg/Ml Vial 2 Ml) Confirm Administered Dose 2 mg .ROUTE .STK-MED ONE Stop: 09/18/24 12:11 Morphine Sulfate (Morphine Sulf Inj 10 Mg/Ml Vial) 5 mg IVP X1 ONE Stop: 09/17/24 19:28 Last Admin: 09/17/24 20:36 Dose: 5 mg Documented By: GREGG Morphine Sulfate (Morphine Sulf Inj 10 Mg/Ml Vial) 3 mg IV Q5M PRN PRN Reason: PAIN SCALE 4-6 (Moderate Stop: 09/18/24 14:23 Ondansetron HCl (Ondansetron Odt 4 Mg Tabrap) 4 mg PO X1 ONE; Protocol Stop: 09/17/24 15:43 Last Admin: 09/17/24 15:57 Dose: 4 mg Documented By: MARYSOL Ondansetron HCl (Ondansetron Inj 2 Mg/Ml Inj 2 Ml) 4 mg IV X1 ONE; Protocol Stop: 09/17/24 19:28 Last Admin: 09/17/24 20:36 Dose: 4 mg Documented By: GREGG Ondansetron HCl (Ondansetron Inj 2 Mg/Ml Inj 2 Ml) 4 mg IV X1 ONE; Protocol Stop: 09/18/24 10:14 Last Admin: 09/18/24 10:21 Dose: 4 mg Documented By: LIAM Ondansetron HCl (Ondansetron Inj 2 Mg/Ml Inj 2 Ml) 4 mg IV X1 ONE Stop: 09/18/24 12:23 Last Admin: 09/18/24 14:21 Dose: 4 mg Documented By: ROSANNE Ondansetron HCl (Ondansetron Inj 2 Mg/Ml Inj 2 Ml) Confirm Administered Dose 4 mg .ROUTE .STK-MED ONE Stop: 09/18/24 12:14 Propofol (Propofol Inj 10 Mg/Ml Vial 20 Ml) Confirm Administered Dose 200 mg IV .STK-MED ONE Stop: 09/18/24 12:11 Sugammadex Sodium (Sugammadex Inj 100 Mg/Ml 2ml Vial) Confirm Administered Dose 200 mg .ROUTE .STK-MED ONE Stop: 09/18/24 12:11 All medications administered and effective Consultations Consultation(s) initiated? (list below): Yes Consultation #1 (Physician, Specialty, Details): Consulted with on-call general surgery Dr Bonilla Case discussed. 1945-Dr Irene HERZOG at patient bedside examining patient. Recommends that patient have an MRCP control pain. Will see the patient in the a.m. for possible cholecystectomy. Diagnosis Differential diagnosis abdominal pain: abdominal pain, acute appendicitis, calculus of kidney, constipation, gastroenteritis and other (Lithiasis, choledocholithiasis) Most likely diagnosis given after review of the tests above:: Cholelithiasis Admission Indicated Admission indicated?: indicated Explain why admission is indicated or not indicated:: Awaiting for MRCP. Admission Request Was there a request for admission?: No Disposition Plan Disposition Plan: other (specify) Discharge Plan Plan Patient Disposition: Admit Acute Care w/in Hospital Problem List Clinical Impression: Choledocholithiasis Patient/Caregiver Discharge Instructions Discharge Activity: activity as tolerated
[2024-09-17 20:00] VITALS: BP 130/85; PULSE 53; RESP 18; TEMP 36.8; O2SAT 97
[2024-09-17] MEDS: ONDANSETRON INJ 2 MG/ML INJ 2 ML 4 MG IV (20:36)
[2024-09-17] MEDS: MORPHINE SULF INJ 10 MG/ML VIAL 5 MG IVP (20:36)
[2024-09-17] MEDS: SODIUM CHLORIDE 0.9% 1000 ML 1,000 ML 999 ML IV (20:37)
--- NOTE | 2024-09-17 22:03 | PD.EDADDENDU ---
Emergency Room Addendum <Heidi French - Last Filed: 09/18/24 03:53> Addendum Narrative: 2199: Care assumed from Nomra Baum NP. Past medical, surgical, social and family history reviewed. Vitals and home medications reviewed. Results and treatment plan discussed. I will assume the care of the patient at this time and will follow the patient, pending MRCP in the AM. Please refer to the emergency department record for history and examination from initial visit. The patient was placed in ED observation care at 09/17/24 at 2200 hours. The patient was placed in ED observation care because of pending MRCP in the AM. The patients past medical history, social history, and family history were reviewed. 0600: Care signed out to Dr. Tapia (emergency physician). Past medical, surgical, social and family history reviewed. Vitals and home medications reviewed. Results and treatment plan discussed. They will assume the care of the patient at this time and will follow the patient, pending MRCP in the AM. At this time, observation has ended. <Katt Perez MD - Last Filed: 09/18/24 04:04> Addendum Narrative: 2199: Care assumed from Norma Baum NP. Past medical, surgical, social and family history reviewed. Vitals and home medications reviewed. Results and treatment plan discussed. I will assume the care of the patient at this time and will follow the patient, pending MRCP in the AM. Please refer to the emergency department record for history and examination from initial visit. In Summary: 34-year-old female with history of cholelithiasis presenting to the emergency department with right upper quadrant pain. Ultrasound shows sludge. Per the nurse practitioner Dr. Shabazz evaluated the patient with her, and recommended an MRCP The patient was placed in ED observation care at 09/17/24 at 2200 hours. The patient was placed in ED observation care because of pending MRCP in the AM. The patients past medical history, social history, and family history were reviewed. 0600: Care signed out to Dr. Tapia (emergency physician). Past medical, surgical, social and family history reviewed. Vitals and home medications reviewed. Results and treatment plan discussed. They will assume the care of the patient at this time and will follow the patient, pending MRCP in the AM. At this time, observation has ended.
[2024-09-17 22:17] VITALS: BP 144/84; PULSE 49; RESP 11; O2SAT 97
[2024-09-17 22:21] VITALS: BP 144/84; PULSE 50; RESP 16; O2SAT 98
[2024-09-17 23:00] VITALS: BP 135/86; PULSE 50; RESP 13; O2SAT 97
[2024-09-17 23:27] VITALS: BP 119/80; PULSE 86; RESP 18; TEMP 36.6; O2SAT 96
[2024-09-18] VITALS (15 sets, daily range): BP systolic 116–177; BP diastolic 71–96; PULSE 52–80; RESP 12–18; TEMP 36.1–36.8; O2SAT 95–100
--- NOTE | 2024-09-18 | XR_ITS ---
MRI abdomen, without contrast. MRCP Date and time of exam: September 18, 2024 at 1847 hrs. Indications: Elevated liver enzymes with abdominal pain beginning 4 days ago, gallstones on gallbladder sonogram September 17, 2024 Technique: Multiple axial and coronal images of the abdomen have been obtained with the Siemens 1.5T MRI scanner. Images obtained included T1 weighted transverse images, T2-weighted transverse images, T2-weighted transverse images fat-suppressed, T2 weighted haste fat suppressed transverse images, T1 weighted images, in and out of phase images, T2-weighted coronal images, breath hold, T2 weighted haze coronal images as well as T2 weighted coronal thick slab images, MRCP. Findings: No focal liver lesions Multiple tiny gallstones, no gallbladder wall thickening or edema Common hepatic duct common bile duct normal size no stones No peripancreatic edema No dilated pancreatic duct Liver measures 18 cm, spleen measures 12 cm No hydronephrosis No ascites Aorta normal size Impression: Cholelithiasis, negative for cholecystitis Normal sized common hepatic common bile duct No common hepatic or common bile duct stones Negative for pancreatitis
--- NOTE | 2024-09-18 02:00 | PC.NURSE ---
pt asleep. VS are stable.
--- NOTE | 2024-09-18 05:30 | PC.NURSE ---
pt woke up. denies pain and appears in NAD.
--- NOTE | 2024-09-18 09:43 | PC.NURSE ---
DR HERZOG HERE TO EVALUATE PT.
--- NOTE | 2024-09-18 10:15 | EDNOTE_ITS ---
Emergency Room Addendum Addendum Narrative: 0600: Care assumed from Dr. Perez, the previous shift emergency physician. Past medical, surgical, social and family history reviewed. Vitals and home medications reviewed. I will assume the care of the patient at this time, pending MRCP and final disposition. Please refer to the emergency department record for history and examination from initial visit.? Physical exam by me shows patient under no acute distress at this time. 1000: Discussed test HPI, PMHx, lab, radiology results and/or management with Dr. Shabazz. Will take patient to the [facility]. Patient accepted. RADIOLOGY Procedure(s): MR MRCP Accession Number(s): [id number] cc: Murray French MD; Brando Allen MD; Sarika ([facility])Norma~ MRI abdomen, without contrast. MRCP Date and time of exam: September 18, 2024 at 1847 hrs. Indications: Elevated liver enzymes with abdominal pain beginning 4 days ago, gallstones on gallbladder sonogram September 17, 2024 Technique: Multiple axial and coronal images of the abdomen have been obtained with the Siemens 1.5T MRI scanner. Images obtained included T1 weighted transverse images, T2-weighted transverse images, T2-weighted transverse images fat-suppressed, T2 weighted haste fat suppressed transverse images, T1 weighted images, in and out of phase images, T2-weighted coronal images, breath hold, T2 weighted haze coronal images as well as T2 weighted coronal thick slab images, MRCP. Findings: No focal liver lesions Multiple tiny gallstones, no gallbladder wall thickening or edema Common hepatic duct common bile duct normal size no stones No peripancreatic edema No dilated pancreatic duct Liver measures 18 cm, spleen measures 12 cm No hydronephrosis No ascites Aorta normal size Impression: Cholelithiasis, negative for cholecystitis Normal sized common hepatic common bile duct No common hepatic or common bile duct stones Negative for pancreatitis Dictated By: Brando Allen MD
[2024-09-18] MEDS: ONDANSETRON INJ 2 MG/ML INJ 2 ML 4 MG IV ×2 (10:21→14:21)
[2024-09-18] MEDS: SODIUM CHLORIDE 0.9% 1000 ML 1,000 ML 100 ML IV (10:22)
--- NOTE | 2024-09-18 12:08 | PD.SURHP ---
HPI Date of Admission 09/18/2024 Chief Complaint Chief Complaint: Patient is admitted to the surgical outpatient section because of cholelithiasis and possible common bile duct stone and cholecystitis HPI History of present illness revealed that the patient was in her usual health until last Friday on 15 September. She came to the emergency room because of severe pain in the upper abdomen radiating to the right side. At the time workup revealed gallstones the patient was discharged after the pain improved with morphine. She was going to be followed by her family physician but she came back on Friday with severe pain once again similar to on . The pain was persistent and a surgical consultation was obtained. But the patient had elevated liver enzymes. And therefore MRCP was recommended which revealed no common bile duct stone. Patient denies having any gallstones prior to this episode this week.. She denies any jaundice or fever or chills. Her mother had gallstones removed. Patient has had 5 children in the last one 1 year ago was by section. She also had a lesion removed from the right side of the chest about 4 years ago. Patient used to weigh a lot more in the past and now is weighing about 230 pounds Past Medical History Past Medical History NEUROLOGIC: Negative Neurological Disorders or Seizures CARDIAC: Negative Cardiac Disorders or Congestive Heart Failure RESPIRATORY: Negative Respiratory Disorders, Chronic Obstructive Pulmonary Disease (COPD) or Asthma GASTROINTESTINAL: Negative Gastrointestinal Disorders, Hepatitis or Colorectal Cancer GENITOURINARY: Negative Genitourinary Disorders, Renal Disease or Prostate Cancer REPRODUCTIVE: Positive Genital Herpes and Previous Pregnancies; Negative Breast Cancer, Endometriosis, Pelvic Inflammatory Disease, Testicular Cancer or Uterine Prolapse MUSCULOSKELETAL: Positive Musculoskeletal Disorders; Negative Bone Cancer ENDOCRINE: Negative Endocrine Disorders, Diabetes Mellitus Type 1 or Diabetes Mellitus Type 2 HEMATOLOGIC: Positive Blood Disorders ( HEMORRHAGE), Anemia (12 years old) and Clotting Problems (BLOOD CLOT IN LEG); Negative Leukemia, Hemophilia, Thalassemia or Sickle Cell Disease PSYCHO/SOCIAL: Positive Depression OTHER HISTORY: Positive Chicken Pox (child); Negative Hospitalization, Autoimmune Disease, Down Syndrome, Developmental Delay, Shingles, Falls, Blood Transfusions, Blood Transfusion Reaction, Anesthesia Reactions, Organ Transplant, Chemotherapy, Radiation Therapy, Hyperbaric Therapy, MRSA, VRSA, Vancomycin-Resistant Enterococci, Human Immunodeficiency Virus (HIV), Measles, Mumps, Rubella (English Measles), Pertussis, Clostridium Difficile, Cancer, Breast Cancer, Cervical Cancer, Colorectal Cancer, Lung Cancer, Ovarian Cancer, Prostate Cancer or Testicular Cancer Family History FAMILY HISTORY: Positive Family Cardiac Disorders (MOTHER-HTN); Negative Family Psychiatric Problems, Family Respiratory Disorders, Family Gastrointestinal Problems, Family Cancer, Family Surgery or Family Anesthesia Reaction Surgical History SURGICAL: Positive Oral Surgery (WISDOM TEETH REMOVED 2008); Negative Section or Organ Transplant Social History SMOKING STATUS: Never smoker SECOND HAND EXPOSURE: No Meds Home Medications and Allergies Home Medications ?Medication ?Instructions ?Recorded ?Confirmed ?Type vits no.124-ferrous fum 1 tab PO QDAY 06/15/23 08/23/23 History 27 mg iron-folic acid 800 mcg tablet ( Vitamin) Allergies Allergy/AdvReac Type Severity Reaction Status Date / Time No Known Allergies Allergy Verified 09/17/24 15:12 Exam Vital Signs Temp Pulse Resp BP Pulse Ox O2 Del Method 98.3 F 71 16 124/78 98 Room Air 09/18/24 09:36 09/18/24 09:36 09/18/24 09:36 09/18/24 09:36 09/18/24 09:36 09/18/24 09:36 Narrative Exam Physical examination revealed an obese female who is 5 feet 9 inches tall weighing 230 pounds with BMI of 34. Her vital signs are normal Routine Abdominal Exam Comments: Examination abdomen showed minimal tenderness in the right upper quad Routine Rectal Exam Comments: Deferred Routine Exam Comments: Deferred Routine Extremities Exam Comments: Within normal limits Results Results: Laboratory Laboratory Narrative: Patient's laboratory workup showed WBC to be elevated to 12,000. Her liver enzymes are also elevated in 200s Results: Imaging Imaging narrative: Ultrasound of the gallbladder showed sludge and multiple gallstones. MRCP failed to show any stones in the common bile duct or hepatic Assessment & Plan Additional Assessment Additional comments: Impression: Cholelithiasis with possible early acute cholecystitis Common bile duct stone, ruled out Obesity Plan Plan: I advised the patient to undergo laparoscopic cholecystectomy because of having passed a stone in the common bile duct as shown by the liver enzyme elevation. Moreover patient has come back to the emergency room within 48 hours after discharge due to pain. Her WBC is also elevated this morning compared to yesterday suggesting acute inflammation of the gallbladder. I advised the patient to undergo laparoscopic cholecystectomy otherwise she will have ongoing problem especially with the sludge going down into the common bile duct and cause even severe pancreatitis. Patient is willing to go through the procedure because of the ongoing pain. The laparoscopic cholecystectomy was explained to the patient and the . The procedure and the potential complications like the common bile duct injury bleeding injury to the bowel etc. were discussed with the patient. Patient was told that she may require open cholecystectomy in case the laparoscopic approach fails. She is agreeable and want to go good with the procedure which is planned this morning as an emergency. Quality Measures Quality Measures none
--- NOTE | 2024-09-18 13:43 | PD.SUROPNT ---
Date of Procedure 09/18/24 Pre Op Diagnosis Symptomatic cholelithiasis Post Op Diagnosis Symptomatic cholelithiasis with early cholecystitis Procedure Laparoscopic cholecystic Findings Patient was found to have distended gallbladder with edema over the wall suggesting early acute cholecystitis. She also had multiple small gallstones and sludge Procedure Description After endotracheal anesthesia was given the patient was placed in supine position and the abdomen was prepped with chloroprep solution and draped in a sterile manner. After time out was performed I injected a few cc of of half percent Marcaine with epinephrine below the umbilicus and I made an incision for about 3 cm in length. The fascia was cleaned and Veress needle was inserted to create a pneumoperitoneum up to 15 mmHg. Then introduced a 12 mm trocar and a 10 mm camera through the fascia and I inspected the intra-abdominal organs as well as the gallbladder and the liver. Another 5 mm trocar was inserted in the epigastric region under direct vision after injecting some local anesthesia. At this time the patient was kept in reverse Trendelenburg position with the left lateral tilt. The third 5 mm trocar was inserted over the mid axillary line under direct vision and a Douglas and Geleydi grasper was used to hold the fundus of the gallbladder. The retraction was carried out by the executive personal assistant moving the fundus of the gallbladder towards the right shoulder of the patient to create enough traction. I placed a another 5 mm trocar in the midaxillary line just lateral to the rectus muscle under direct vision. I used a fenestrated grasper to retract the neck of the gallbladder laterally towards the patient's right hip. The Calot's triangle was exposed and I achieved the critical view of safety as follows: I dissected out the fatty tissue from the hepatocystic triangle and cleared this area. I also dissected inferior and posterior to the gallbladder to identify the cystic duct and the gallbladder wall. Then superiorly I dissected along the cystic plate up to lower one third third of the gallbladder to lift the gallbladder from the liver. At this time I confirmed that only 2 structures entering the gallbladder were cystic artery and the cystic duct. The common duct was seen distally but no dissection was carried out around the duct. I did not see any need for operative cholangiogram in this patient. The cystic duct was clipped doubly and then divided and cystic artery was similarly dealt with. Then the gallbladder was removed from the liver bed using Harmonic maritza to control the small blood vessels as the dissection proceeded. Then the gallbladder was from the liver bed completely and delivered through the umbilical port using an Endopouch. The liver bed was coagulated with cautery to obtain satisfactory hemostasis. The trocars were pulled out from the abdominal cavity and the fascia at the umbilical incision was closed with interrupted 0 Ethibond. Subcutaneous tissues was closed with 3-0 chromic and injected a few cc of half percent Marcaine with epinephrine and the skin was closed with interrupted 4-0 Monocryl subcuticular stitches at all the trocar sites. Dressing was applied with 2 x 2 and Tegaderm. Patient tolerated the procedure well and returned to recovery room in stable condition. Anesthesia GETA Pathology / specimen Other (Gallbladder and the stones) IVF Infused 400 Estimated Blood Loss 20 Surgeon Manju Bonilla MD Surgical Staff Operation Date: 09/18/24 13:15 Case Staff Anesthesiologist: Ashwin Cody RN First Assistant: Val Parker
--- NOTE | 2024-09-18 13:49 | SUR.PHASEI ---
Pt. arrived to recovery via gurney, eyes closed, oral airway in place, pt. receiving 8 liters 02 via oxymask, lung sounds clear, equal expansion dayday., lap sites x4 to abdomen, sutures, 2x2 gauze, and hypafix tape in place, no active bleeding or redness noted, report received from Dr. Cody and Dennise MCGOVERN.
[2024-09-18] MEDS: ACETAMINOPHEN IVPB 1,000 MG/100 ML VIAL 250 MG IV (14:25)
[2024-09-18] MEDS: HYDROmorphone INJ 2 MG/ML VIAL 0.4 MG IV (14:39)
--- NOTE | 2024-09-18 15:10 | SUR.PHASEII ---
Pt. meets criteria for discharge, VSS, lap sites x4 CDI, IV discontinued without complications, pt. c/o gas pain, provided 7 up and pt. is burping to help facilitate gas out, provided discharge instructions to pt. and pt.'s , verbalized understanding. Pt. escorted to vehicle via w/c with all of belongings by staff.
== END 2024-09-18 15:10 | disposition home or self-care (01) ==
LOC: SERX 09-18 06:55 → S2EX 09-18 10:16
PROVIDERS: Nurse Practitioner Family; Emergency Provider Emergency Medicine; PCP Family Medicine; Referring Provider Surgery; Visit Provider Surgery
PROC: 0FT44ZZ Resection of Gallbladder, Percutaneous Endoscopic Approach (ICD-10-PCS; CPT 47562; principal; 2024-09-18 13:00)
DX: K80.10 Calculus of gallbladder with chronic cholecystitis without obstruction (principal); K85.90 Acute pancreatitis without necrosis or infection, unspecified; E66.9 Obesity, unspecified; Z68.34 Body mass index [BMI] 34.0-34.9, adult
CPT/HCPCS: 47562; 36415; 76705; 80053; 81001; 81025; 83690; 85025; 87086; 96361; 96374; 96375; 99285; A4217; A4649; J0131; J1100; J1885; J2250; J2270; J2405; J2704; J3010; J3490; J7030; Q0162; S8037; 74181; A9270

== ENCOUNTER 2024-09-18 19:56 | Emergency (ER) | payer MEDICAID, SELFPAY ==
[2024-09-18 20:06] VITALS: BP 161/87; PULSE 68; RESP 20; TEMP 36.9; O2SAT 100
[2024-09-18 20:08] VITALS: PULSE 84; RESP 18; O2SAT 98; BMI 34.0
[2024-09-18] MEDS: HYDROmorphone INJ 2 MG/ML VIAL 0.5 MG IVP ×2 (20:44→21:53)
--- NOTE | 2024-09-18 20:49 | EDNOTE_ITS ---
ED Abdominal Pain RME/HPI General Chief Complaint: Abdominal Pain Stated complaint: ABDOMINAL PAIN Time seen by provider: 09/18/24 20:03 Arrival date/time: 09/18/24 19:56 This is a 34-year-old female that comes to the emergency room with complaints of abdominal pain. Patient was just discharged from the hospital today after having a cholecystectomy for symptomatic cholelithiasis with early cholecystitis. did the surgery today. Patient started to have pain approximately 3 of 30. Patient took half a [place] at that time. And then around 730 per patient started having really bad pain to her abdomen. Patient has a history of blood clots with . Patient reports she is only taking medication for this Related Data Home Medications ?Medication ?Instructions ?Recorded ?Confirmed vits no.124-ferrous fum 1 tab PO QDAY 3 08/23/23 27 mg iron-folic acid 800 mcg tablet ( Vitamin) Previous Rx's ?Medication ?Instructions ?Recorded meloxicam 7.5 mg tablet 7.5 mg PO QDAY #10 tabs 08/22 01/12 ondansetron 4 mg disintegrating 4 mg PO Q8H #14 tabs 0 09/15/24 tablet hydrocodone 5 mg-acetaminophen 325 1 tab PO Q6H PRN pa in #20 tabs 09/18/24 mg tablet Allergies Allergy/AdvReac Type Severity Reaction Status Date / Time No Known Allergies Allergy Verified 09/19/24 13:32 Review of Systems Review of Systems Systems Reviewed: All systems reviewed, normal except as documented Past Medical History Past Medical History NEUROLOGIC: Negative Neurological Disorders or Seizures CARDIAC: Negative Cardiac Disorders or Congestive Heart Failure RESPIRATORY: Negative Chronic Obstructive Pulmonary Disease (COPD) or Asthma GASTROINTESTINAL: Negative Gastrointestinal Disorders, Hepatitis or Colorectal Cancer GENITOURINARY: Negative Genitourinary Disorders, Renal Disease or Prostate Canc er REPRODUCTIVE: Positive Genital Herpes and Previous Pregnancies; Negative Breast Cancer, Endometriosis, Pelvic Inflammatory Disease, Testicular Cancer or Uterine Prolapse MUSCULOSKELETAL: Positive Musculoskeletal Disorders; Negative Bone Cancer ENDOCRINE: Negative Endocrine Disorders, Diabetes Mellitus Type 1 or Diabetes Mellitus Type 2 HEMATOLOGIC: Positive Blood Disorders, Anemia and Clotting Problems; Negative Leukemia, Hemophilia, Thalassemia or Sickle Cell Disease PSYCHO/SOCIAL: Positive Depression OTHER HISTORY: Positive Chicken Pox; Negative Hospitalization, Autoimmune Disease, Down Syndrome, Developmental Delay, Shingles, Falls, Blood Transfusions, Blood Transfusion Reaction, Anesthesia Reactions, Organ Transplant, Chemotherapy, Radiation Therapy, Hyperbaric Therapy, MRSA, VRSA, Vancomycin-Resistant Enterococci, Human Immunodeficiency Virus (HIV), Measles, Mumps, Rubella (Croat[place] Measles), Pertussis, Clostridium Difficile, Cancer, Breast Cancer, Cervical Cancer, Colorectal Cancer, Lung Cancer, Ovarian Cancer, Prostate Cancer or Testicular Cancer Family History FAMILY HISTORY: Positive Family Cardiac Disorders; Negative Family Psychiatric Problems, Family Respiratory Disorders, Family Gastrointestinal Problems, Family Cancer, Family Surgery or Family Anesthesia Reaction Surgical History SURGICAL: Positive Oral Surgery; Negative Section or Organ Transplant Social History SMOKING STATUS: Never smoker SECOND HAND EXPOSURE: No ED Exam General General appearance: Present alert and in no apparent distress Head Head exam: Present atraumatic Eye Eye exam: Present normal appearance, PERRL and EOMI ENT ENT exam: Present normal exam, normal oropharynx and mucous membranes moist Neck Neck exam: Present normal inspection, full ROM and trachea midline Chest Chest inspection: Present normal inspection and symmetric chest wall rise Respiratory Respiratory exam: Present normal lung sounds bilaterally Cardiovascular Cardiovascular exam: Present regular rate, normal rhythm and normal heart sounds Abdominal Exam Abdominal exam: Present soft and other (not distended, nontender to palpation, surgical wounds looks clean and dry) Extremities Exam Extremities exam: Present normal inspection and full ROM Back Exam Back exam: Present normal inspection and full ROM Neurological Exam Neurological exam: Present alert, oriented X3 and CN II-XII intact Psychiatric Psychiatric exam: Present normal affect and normal mood Skin Skin exam: Present warm, dry, intact and normal color Course Quality Measures none Orders Category Date Time Status HYDROmorphone INJ [Dilaudid Inj] Med 09/18/24 20:40 Discontinued 0.5 mg IVP X1 ONE HYDROmorphone INJ [Dilaudid Inj] Med 09/18/24 21:40 Discontinued 0.5 mg IVP X1 ONE Metoclopramide Inj [Reglan Inj] Med 09/18/24 21:40 Discontinued 5 mg IVP X1 ONE Ondansetron Inj [Zofran Inj] Med 09/18/24 20:40 Discontinued 4 mg IV X1 ONE Vital Signs Vital signs: Vital Signs Temperature 98.4 F 09/18/24 20:06 Pulse Rate 68 09/18/24 20:06 Respiratory Rate 20 09/18/24 20:06 Blood Pressure 161/87 H 09/18/24 20:06 Pulse Oximetry (%) 100 09/18/24 20:06 Oxygen Delivery Method Room Air 09/18/24 20:06 Abdominal Pain MDM MDM Narrative MDM Narrative:: Patient's pain resolved after given Dilaudid and Zofran. Patient feels comfortable going home at this time. I let her know that I called surgery, and he was ok with patient going home. Patient has [place] at home for maria c n. Will give patient a dose of pain medication before she leaves the emergency room. Patient told to follow-up with primary provider in 1 to 2 days. Come back to the emergency room if symptoms change or worsen. Patient data External records reviewed:: [facility] previous records Clinical information provided by:: patient Social determinants that could affect healthcare access:: none Patient has the following chronic illnesses:: see hpi How is presenting disease/condition affected by chronic disease/condition?: no chronic disease Evaluation data The following diagnostics were reviewed and interpreted by me:: lab results and radiology exam(s) Lab and/or radiology exams considered but not ordered:: cbc, bmp, ct abdomen and pelvis Interpretation Summary: none Medications / Prescriptions Medications or Prescriptions considered but not ordered:: zosyn Medication administrations:: Medication Administration History Discontinued Medications Hydromorphone HCl (Hydromorphone Inj 2 Mg/Ml Vial) 0.5 mg IVP X1 ONE Stop: 09/18/24 20:41 Last Admin: 09/18/24 20:44 Dose: 0.5 mg Documented By: TC Hydromorphone HCl (Hydromorphone Inj 2 Mg/Ml Vial) 0.5 mg IVP X1 ONE Stop: 09/18/24 21:41 Last Admin: 09/18/24 21:53 Dose: 0.5 mg Documented By: TC Metoclopramide HCl (Metoclopramide Inj 5 Mg/Ml Vial 2 Ml) 5 mg IVP X1 ONE; Protocol Stop: 09/18/24 21:41 Last Admin: 09/18/24 21:54 Dose: 5 mg Documented By: TC Ondansetron HCl (Ondansetron Inj 2 Mg/Ml Inj 2 Ml) 4 mg IV X1 ONE; Protocol Stop: 09/18/24 20:41 Last Admin: 09/18/24 20:51 Dose: 4 mg Documented By: EF see note Consultations Consultation(s) initiated? (list below): Yes Consultation #1 (Physician, Specialty, Details): I called him and let him know that patient was in the emergency room. I asked him if there were certain labs or scans that he wanted ran while patient was in the emergency room. Spoke to surgeon DR. Bonilla, no labs, scans, or antibiotics ordered at this time. He wants patient's pain controlled and if okay can send patient home. If pain is not improved with pain medication labs will be done at that time. Pt instructed to come back to ED iof symptoms change or worsen. Diagnosis Differential diagnosis abdominal pain: abdominal pain, acute appendicitis, calculus of kidney, pancreatitis and other (stone common bile duct) Most likely diagnosis given after review of the tests above:: post op pain Admission Indicated Admission indicated?: not indicated Admission Request Was there a request for admission?: No Disposition Plan Disposition Plan: Discharge Discharge Attestation Discharge Attestation: The patient and all family members were given an opportunity to ask questions and understood the discharge instructions. Discharge instructions specifically effects, indications for sooner follow up or return to the emergency department, and the expected course of current diagnosis. Patient condition: Stable Discharge Plan Plan Patient Disposition: HOME (Self Care) Patient condition on transfer: Stable Prescriptions/Referrals Prescriptions/Med Rec: No Action ondansetron 4 mg tablet,disintegrating 4 mg PO Q8H Qty: 14 0RF meloxicam 7.5 mg tablet 7.5 mg PO QDAY Qty: 10 0RF hydrocodone-acetaminophen 5-325 mg tablet 1 tab PO Q6H MDD 4 PRN (Reason: pain) Qty: 20 0RF Vitamin 27 mg iron- 800 mcg Tablet 1 tab PO QDAY Problem List Clinical Impression: Post-op pain, S/P cholecystectomy Patient/Caregiver Discharge Instructions Discharge Activity: activity as tolerated Education Materials: Managing Post-Op Pain at Home Additional Instructions: Follow up with primary provider in 1-2 days. Come back to ED if symptoms change or worsen. Print Language: Serbian Stand Alone Forms: Katina Award Info., Patient Portal Info Letter PA/SINGH Supervising Physician JENNIFFER/SINGH Supervising Physician: [email or web address]
[2024-09-18] MEDS: ONDANSETRON INJ 2 MG/ML INJ 2 ML 4 MG IV (20:51)
[2024-09-18] MEDS: METOCLOPRAMIDE INJ 5 MG/ML VIAL 2 ML IVP (21:54)
[2024-09-18 21:59] VITALS: BP 140/89; PULSE 61; RESP 14; TEMP 37.2; O2SAT 100
== END 2024-09-18 22:17 | disposition home or self-care (01) ==
LOC: SERX 22:16
PROVIDERS: Emergency Provider Emergency Medicine
DX: G89.18 Other acute postprocedural pain (principal); Z90.49 Acquired absence of other specified parts of digestive tract
CPT/HCPCS: 96374; 96375; 99284; J2405; J2765; J3490

== ENCOUNTER 2024-09-19 13:29 | Emergency (ER) | payer MEDICAID, SELFPAY ==
[2024-09-19 13:30] VITALS: BMI 34.0
[2024-09-19 13:56] VITALS: BP 156/98; PULSE 66; RESP 20; TEMP 36.4; O2SAT 100
--- NOTE | 2024-09-19 14:07 | XR_ITS ---
Examination: CT abdomen with intravenous contrast CT pelvis with intravenous contrast 2-D coronal reconstructions 2-D sagittal reconstructions Date and time of exam:September 19, 2024 1428 hrs. Indications: Postop cholecystectomy abdominal pain today. CTDI: vol (mGy) 15.6 DLP: (mGycm) 877 Technique: Multiple axial sections of the abdomen and pelvis have been obtained. 64 slice high-resolution scanner used. 3 mm axial sections have been obtained, post intravenous injection 60 cc [id number] 2-D sagittal, coronal reconstructions obtained. Low dose protocols were performed. One or more of the following dose reduction techniques were used; automated exposure control, adjustment of the mA and/or KV according to patient size, use of iterative reconstruction technique. Findings: Pneumoperitoneum Fatty liver Absent gallbladder No abscess in the gallbladder fossa Common bile duct 7 mm No pancreatic mass No renal or ureteral calculi, no hydronephrosis 25 mm fat-containing umbilical hernia No bowel obstruction Mild free fluid in the pelvis Urinary bladder intact Impression: Postop pneumoperitoneum No hematoma or abscess in the gallbladder fossa 25 mm fat-containing umbilical hernia Mild free fluid in the pelvis No CT findings of appendicitis or bowel obstruction
[2024-09-19] MEDS: HYDROmorphone INJ 2 MG/ML VIAL 1 MG IVP (14:39)
[2024-09-19] MEDS: ONDANSETRON INJ 2 MG/ML INJ 2 ML 4 MG IV ×2 (14:39→21:48)
--- NOTE | 2024-09-19 14:54 | PC.NURSE ---
PT REPORTED 10/10 ABD PAIN. S/P SURGERY YESTERDAY, GAVE IV PAIN MED, ALMOST INSTANT RELIEF. PT WAS MOANING AND NOW SLEEPING. VSS ON TELE. SPOKE W/DR. HERZOG AND PROVIDED UPDATE. UNABLE TO COMPLETE CT SCAN SCREENING RADIOLOGY TOOK HER PRIOR TO THIS RN GETTING INTO ROOM. RADIOLOGY PLACED IV FOR CT. SPOUSE AT BEDSIDE ATTENTIVE TO PT. CALL JEFFERSON IN REACH, WILL CONTINUE W/POC
[2024-09-19 15:02] LABS: Basophils % (Auto) 0 % (0-2.5); Eosinophils % (Auto) 0 % (0-10); Hematocrit 40.4 % (36.0-46.0); Immature Granulocytes % (Auto) 0 % (0-0); Immature Granulocytes Auto 0.06 Thou/mm3 (0.00-0.00); Lymphocytes # (Auto) 1.3 Thou/mm3 (1.0-4.8); Lymphocytes % (Auto) 9 % (10-50); Mean Corpuscular HGB Conc 34.7 g/dl (31.0-37.0); Mean Corpuscular Hemoglobin 29.8 pg (25.0-35.0); Mean Corpuscular Volume 86 fL (80-100); Monocytes # (Auto) 1.2 Thou/mm3 (0.0-0.8); Monocytes % (Auto) 8 % (0-12); Neutrophils # (Auto) 12.1 Thou/mm3 (1.8-7.7); Neutrophils % (Auto) 83 % (37-80); Nucleated Red Blood Cell % 0 /100 WBC (0); Platelet Count 238 Thou/mm3 (140-440); RDW Standard Deviation 39.3 fL (36.4-46.3); White Blood Count 14.6 Thou/mm3 (3.6-11.0)
[2024-09-19 15:19] LABS: Alanine Aminotransferase 667 U/L (10-49); Albumin, Serum 4.3 gm/dL (3.5-5.0); Albumin/Globulin Ratio 1.4 (1.2-2.2); Alkaline Phosphatase 215 U/L (46-116); Anion Gap 12 (7-16); Aspartate Amino Transferase 278 U/L (0-34); BUN/Creatinine Ratio 18 Ratio (12-20); Bilirubin,Total 4.6 mg/dL (0.3-1.2); Blood Urea Nitrogen 14 mg/dL (9-23); Calcium 9.2 mg/dL (8.3-10.6); Calcium (Corrected) 9.2 mg/dL (8.5-10.1); Carbon Dioxide 22.9 mMol/L (20.0-31.0); Chloride 105 mMol/L (98-107); Creatinine (Component) 0.8 mg/dL (0.6-1.3); Estimated Creatinine Clearance 126.2 mL/min (>60); Globulin 3.1 gm/dL (2.3-3.5); Glucose 121 mg/dL (74-106); Lipase 39 U/L (12-53); Osmolality,Calculated 280 (275-295); Potassium 3.2 mMol/L (3.4-5.1); Sodium 140 mMol/L (136-145); Total Protein 7.4 gm/dL (5.7-8.2); eGFR > 60 See Note
[2024-09-19 15:54] VITALS: BP 150/89; PULSE 55; RESP 20; TEMP 36.9; O2SAT 100
[2024-09-19] MEDS: MORPHINE SULF INJ 10 MG/ML VIAL 4 MG IVP (16:10)
[2024-09-19] MEDS: SODIUM CHLORIDE 0.9% 1000 ML 1,000 ML 100 ML IV (16:14)
--- NOTE | 2024-09-19 16:39 | PD.RESCONSUL ---
HPI Data of Consult Consult date: 09/19/24 Primary Care Provider: Murray French MD Consult Narrative Reason for consult: Abdominal pain History of present illness: 34-year-old female with no past medical history, recent admission for cholecystectomy on 09/18/2024 came to the ED with abdominal pain. Patient describes the pain as 10 out of 10 located in the epigastric region described as sharp in character. Abdominal CT was obtained and showed Post-op pneumoperitoneum, No hematoma or abscess in the gallbladder fossa, 25 mm fat-containing umbilical hernia, Mild free fluid in the pelvis, No CT findings of appendicitis or bowel obstruction. Pneumoperitoneum is a common finding status post surgery but is really asymptomatic and resolved within a few days. ED course: Vitals on arrival show BP 156/98, heart rate 66, respiratory rate 20, afebrile, saturating 100% on room air. Labs significant for WBCs 14.6, CHEM significant for potassium 3.2, glucose 121, total bilirubin 4.6, AST 278, ALT 667, alk phos 215. Abdominal CT scan showed postop pneumoperitoneum, No hematoma or abscess in the gallbladder fossa, 25 mm fat-containing umbilical hernia, Mild free fluid in the pelvis, No CT findings of appendicitis or bowel obstruction. In the ED patient received Dilaudid 1 mg, Zofran 4 mg, morphine 4 mg, 1 L NS cc:: cc: Review of Systems Review of Systems Narrative Review of Systems: Narrative ROS GENERAL: Denies fevers/chills or diaphoresis. HEENT: Denies headache or visual/hearing changes. Denies nasal discharge. NEURO: Denies unusual weakness or difficulty speaking. CARDIO: Denies chest pain or palpitations. PULM: Denies SOB, coughing, or wheezing. GI: + abdominal pain, positive nausea and vomiting denies, bright red blood per rectum or melena. Reports having BMs. URO: Denies burning/itching/pain/urinary changes. FLATCAR WHACKER: Denies menstrual changes, hot flashes. MSK/EXT/SKIN: Denies joint/skeletal/muscle pain, issues/changes in upper or lower extremities, itchiness, or superficial pain. PSYCH: Cooperative, pleasant mood & affect. The rest of the review of systems is otherwise negative. Exam Vital Signs Temp Pulse Resp BP Pulse Ox O2 Del Method 98.4 F 55 L 20 150/89 H 100 Room Air 09/19/24 15:54 09/19/24 15:54 09/19/24 15:54 09/19/24 15:54 09/19/24 15:54 09/19/24 15:54 Narrative Exam Physical Exam GENERAL: NAD, AAOx3 HEENT: Moist mucosa. Eyes open, symmetrical, & clear CARDIO: Heart RRR, no obvious murmurs PULM: No noted coughing/dyspnea CTA B/L, no R/W/R GI: Abdomen soft, nondistended, tenderness on palpation. Hypoactive bowel sounds SKIN/MSK/EXT: No wounds/rashes/edema/amputations, no pain on palpation. Pedal pulses present B/L NEURO: AAOx3, no focal neuro deficits, able to move all 4 extremities Results Labs 09/19/24 14:45 09/19/24 14:45 Labs: Short CBC 09/19/24 Range/Units 14:45 WBC 14.6 H (3.6-11.0) Thou/mm3 Hgb 14.0 (12.0-16.0) g/dL Hct 40.4 (36.0-46.0) % Plt Count 238 (140-440) Thou/mm3 BMP 09/19/24 14:45 Sodium 140 Potassium 3.2 L Chloride 105 Carbon Dioxide 22.9 BUN 14 Creatinine 0.8 Glucose 121 H Calcium 9.2 Liver Function 09/19/24 Range/Units 14:45 Total Bilirubin 4.6 H D (0.3-1.2) mg/dL AST 278 H (0-34) U/L ALT 667 H* (10-49) U/L Alkaline Phosphatase 215 H D (46-116) U/L Albumin 4.3 D (3.5-5.0) gm/dL Quality Measures Quality Measures VTE prophylaxis Medications Home Medications and Allergies Home Medications ?Medication ?Instructions ?Recorded ?Confirmed ?Type vits no.124-ferrous fum 1 tab PO QDAY 06/15/23 08/23/23 History 27 mg iron-folic acid 800 mcg tablet ( Vitamin) Allergies Allergy/AdvReac Type Severity Reaction Status Date / Time No Known Allergies Allergy Verified 09/19/24 13:32 Visit Medications Sodium Chloride (Ns) 1,000 mls @ 100 mls/hr IV .Q10H GARCIA Stop: 10/19/24 15:27 Last Admin: 09/19/24 16:14 Dose: 100 mls/hr Discontinued Medications Hydromorphone HCl (Hydromorphone Inj 2 Mg/Ml Vial) 1 mg IVP X1 ONE Stop: 09/19/24 14:08 Last Admin: 09/19/24 14:39 Dose: 1 mg Morphine Sulfate (Morphine Sulf Inj 10 Mg/Ml Vial) 4 mg IVP X1 ONE Stop: 09/19/24 15:23 Last Admin: 09/19/24 16:10 Dose: 4 mg Ondansetron HCl (Ondansetron Inj 2 Mg/Ml Inj 2 Ml) 4 mg IV X1 ONE; Protocol Stop: 09/19/24 14:08 Last Admin: 09/19/24 14:39 Dose: 4 mg Assessment & Plan Plan 34-year-old female with no past medical history, recent admission for cholecystectomy on 09/18/2024 came to the ED with abdominal pain. Patient describes the pain as 10 out of 10 located in the epigastric region described as sharp in character. Abdominal CT was obtained and showed Post-op pneumoperitoneum, No hematoma or abscess in the gallbladder fossa, 25 mm fat-containing umbilical hernia, Mild free fluid in the pelvis, No CT findings of appendicitis or bowel obstruction. Pneumoperitoneum is a common finding status post surgery but is really asymptomatic and resolve. Recommendations: #Postop pneumoperitoneum status post cholecystectomy Patient had cholecystectomy 09/18/[address] showed postop pneumoperitoneum, no hematoma or abscess in the gallbladder fossa, 25 mm fat-containing umbilical hernia, Mild free fluid in the pelvis, No CT findings of appendicitis or bowel obstruction Pneumoperitoneum is a common finding status post surgery but is really asymptomatic and resolve. ? Lactated Ringer's at 125 cc/h ? Dilaudid 1 mg every 3 hours as needed ? Toradol 30 mg every 3 hours as needed ? Morphine 2 mg for breakthrough pain Case discussed with my attending Dr. Jackeline French MD PGY-1 Attending Provider Attestation/Addendum Patient came back with abdominal pain. She has hyperbilirubinemia. ALT 667 AST 278. Pending MRCP. -The patient will be given IV pain medication.
--- NOTE | 2024-09-19 17:17 | PC.NURSE ---
PT RESTING EYES CLOSED, EVEN RISE AND FALL OF CHEST VSS ON TELE.
--- NOTE | 2024-09-19 17:28 | PD.SURCONS ---
HPI Consult details Consult date: 09/19/24 Reason for consultation narrative: Patient was seen on consultation once again because of severe abdominal pain following laparoscopic cholecystectomy yesterday History of present illness: History of present illness revealed that the patient went home after uneventful laparoscopic cholecystectomy after confirming that she does not have any stones in the common bile duct by the MRCP. She was discharged because it was an ambulatory surgery and did not need any requirement to meet inpatient care. However patient developed severe pain last night and came to the emergency room and got some pain medication. She had pain all through the night and this morning I called her to see how the pain is and she was still in severe pain. Therefore she came to the emergency room and was found to have markedly elevated liver enzymes and bilirubin. Meds Home Medications and Allergies Home Medications ?Medication ?Instructions ?Recorded ?Confirmed ?Type vits no.124-ferrous fum 1 tab PO QDAY 06/15/23 08/23/23 History 27 mg iron-folic acid 800 mcg tablet ( Vitamin) Allergies Allergy/AdvReac Type Severity Reaction Status Date / Time No Known Allergies Allergy Verified 09/19/24 13:32 Exam Vital Signs Temp Pulse Resp BP Pulse Ox O2 Del Method 98.4 F 55 L 20 150/89 H 100 Room Air 09/19/24 15:54 09/19/24 15:54 09/19/24 15:54 09/19/24 15:54 09/19/24 15:54 09/19/24 15:54 Her vital signs are normal Routine Abdominal Exam Comments: Examination of the abdomen showed mild epigastric tenderness but no signs of peritoneal irritation Results Results: Laboratory Laboratory Narrative: Patient's laboratory workup showed elevated bilirubin to 4.6 and transaminases with AST 287 and ALT 667. Results: Imaging Imaging narrative: Patient had a CT scan of the abdomen which showed small amounts of free air which is expected from yesterday's laparoscopic cholecystectomy Assessment & Plan Additional Assessment Additional comments: Impression: Possible common bile duct stone following laparoscopic cholecystectomy Plan Plan: We shall get an MRCP which is unfortunately not available tonight being Friday. Patient may require ERCP if the MRCP showed any stone. The stone might of gone into the common bile duct during the surgery and is now manifesting with a severe pain. The management was explained to her in detail to the patient and she is agreeable and wants to stay here. It will probably prudent to start her on antibiotics because of the common bile duct stone so that she will not develop cholangitis.
--- NOTE | 2024-09-19 17:36 | PD.EDADULT ---
ED General RME/HPI General Chief complaint: Abdominal Pain Stated complaint: GALLBLADDER REMOVAL 09/19/24, EXTREME PAIN Time Seen by Provider: 09/19/24 13:51 Arrival date/time: 09/19/24 13:29 CC: Epigastric pain 8-10 on a 10 scale denies any nausea vomiting at the time. The patient is postop less than 12 hours for cholecystectomy by Dr Bonilla. Patient states pain has become progressively worse over the 12 hours. No other complaints including chest pain fever shortness of breath or difficulty breathing. Related Data Home Medications ?Medication ?Instructions ?Recorded ?Confirmed vits no.124-ferrous fum 1 tab PO QDAY 06/15/23 08/23/23 27 mg iron-folic acid 800 mcg tablet ( Vitamin) Previous Rx's ?Medication ?Instructions ?Recorded meloxicam 7.5 mg tablet 7.5 mg PO QDAY #10 tabs 09/15/24 ondansetron 4 mg disintegrating 4 mg PO Q8H #14 tabs 09/15/24 tablet hydrocodone 5 mg-acetaminophen 325 1 tab PO Q6H PRN pain #20 tabs 09/18/24 mg tablet Allergies Allergy/AdvReac Type Severity Reaction Status Date / Time No Known Allergies Allergy Verified 09/19/24 13:32 Review of Systems Review of Systems Narrative Review of Systems: GEN: No fever, no chills, no weight loss EYES: No discharge, no visual changes, no pain HEENT: No ear pain, no congestion, no sore throat PULM: No shortness of breath, no cough, no congestion CV: No chest pain, no dyspnea on exertion, no palpitations GI: No nausea, no vomiting, no diarrhea, + pain, no constipation : No frequency, no urgency, no dysuria MUSC/SKEL: No joint pain, no back pain SKIN: No rash PSYCH: No hallucinations, no depression HEME/LYMPH: No easy bleeding or bruising tendencies NEURO: No weakness, no headache Past Medical History Past Medical History NEUROLOGIC: Negative Neurological Disorders or Seizures CARDIAC: Negative Cardiac Disorders or Congestive Heart Failure RESPIRATORY: Negative Chronic Obstructive Pulmonary Disease (COPD) or Asthma GASTROINTESTINAL: Negative Gastrointestinal Disorders, Hepatitis or Colorectal Cancer GENITOURINARY: Negative Genitourinary Disorders, Renal Disease or Prostate Cancer REPRODUCTIVE: Positive Genital Herpes and Previous Pregnancies; Negative Breast Cancer, Endometriosis, Pelvic Inflammatory Disease, Testicular Cancer or Uterine Prolapse MUSCULOSKELETAL: Positive Musculoskeletal Disorders; Negative Bone Cancer ENDOCRINE: Negative Endocrine Disorders, Diabetes Mellitus Type 1 or Diabetes Mellitus Type 2 HEMATOLOGIC: Positive Blood Disorders, Anemia and Clotting Problems; Negative Leukemia, Hemophilia, Thalassemia or Sickle Cell Disease PSYCHO/SOCIAL: Positive Depression OTHER HISTORY: Positive Chicken Pox; Negative Hospitalization, Autoimmune Disease, Down Syndrome, Developmental Delay, Shingles, Falls, Blood Transfusions, Blood Transfusion Reaction, Anesthesia Reactions, Organ Transplant, Chemotherapy, Radiation Therapy, Hyperbaric Therapy, MRSA, VRSA, Vancomycin-Resistant Enterococci, Human Immunodeficiency Virus (HIV), Measles, Mumps, Rubella (Amharic Measles), Pertussis, Clostridium Difficile, Cancer, Breast Cancer, Cervical Cancer, Colorectal Cancer, Lung Cancer, Ovarian Cancer, Prostate Cancer or Testicular Cancer Family History FAMILY HISTORY: Positive Family Cardiac Disorders; Negative Family Psychiatric Problems, Family Respiratory Disorders, Family Gastrointestinal Problems, Family Cancer, Family Surgery or Family Anesthesia Reaction Surgical History SURGICAL: Positive Oral Surgery; Negative Section or Organ Transplant Social History SMOKING STATUS: Never smoker SECOND HAND EXPOSURE: No ED Exam Narrative Physical exam: [General: In moderate discomfort but not in any acute distress Head normocephalic HEENT: Within acceptable limits Neck is supple nontender Chest equal chest rise nontender to palpation Respiratory: Clear to auscultation no wheezes crackles or rubs CV: Rate rhythm is regular no murmurs rubs or clicks Abdomen epigastric and right upper quadrant pain exquisite and tenderness reflexive guarding no rebound tenderness. No lower abdominal tenderness with palpation. Surgical sites clean dry and intact with dressings on board. No active bleeding. Back: No CVA tenderness no spinous process tenderness from cervical spine thoracic and lumbar spine Skin: Intact no petechiae rash induration ulceration or crepitus Extremities: Moving all extremity against resistance cap refill less than 2 seconds neurosensory intact Neuro: Awake alert oriented x3 Glascow coma 15 no focal deficits] Course Quality Measures none Orders Category Date Time Status CT Screening NOW Care 09/19/24 14:08 Completed IV [Insert IV] STAT Care 09/19/24 14:07 Completed MRI Screening NOW Care 09/19/24 17:35 Completed Referral - Waste Elimination Stat Cons 09/20/24 09:[address] abdomen pelvis w con Stat Exams 09/19/24 14:07 Completed MR MRCP Stat Exams 09/20/24 Completed CBC Stat Lab 09/19/24 14:45 Completed CMP [Comprehensive Metabolic Panel] Stat Lab 09/19/24 14:45 Completed Lipase Stat Lab 09/19/24 14:45 Completed Liver Panel AM DRAW Lab 09/20/24 04:42 Completed HYDROmorphone INJ [Dilaudid Inj] Med 09/19/24 17:29 Discontinued 1 mg IV Q3HR ONE HYDROmorphone INJ [Dilaudid Inj] Med 09/19/24 14:07 Discontinued 1 mg IVP X1 ONE Ketorolac Inj [Toradol Inj] Med 09/19/24 17:29 Discontinued 30 mg IVP Q3HR PRN Morphine Inj Med 09/19/24 17:29 Discontinued 2 mg IVP Q3HR PRN Morphine Inj Med 09/19/24 15:22 Discontinued 4 mg IVP X1 ONE Ondansetron Inj [Zofran Inj] Med 09/19/24 14:07 Discontinued 4 mg IV X1 ONE Ondansetron Inj [Zofran Inj] Med 09/19/24 21:36 Discontinued 4 mg IV X1 ONE Piper/Tazo Inj [Zosyn Inj] 4.5 gm Med 09/19/24 22:00 Discontinued Sodium Chloride 0.9% (Pop) [NS 0.9% mini bag] 100 ml IV Q8HR Ringers Lactated 1000 ml [Lactated Ringers] 1,000 ml Med 09/19/24 17:30 Discontinued IV 125 mls/hr Sodium Chloride 0.9% 1000 ml [Ns] 1,000 ml Med 09/19/24 15:28 Discontinued IV 100 mls/hr Vital Signs Vital signs: Vital Signs Temperature 97.6 F 09/19/24 13:56 Pulse Rate 66 09/19/24 13:56 Respiratory Rate 20 09/19/24 13:56 Blood Pressure 156/98 H 09/19/24 13:56 Pulse Oximetry (%) 100 09/19/24 13:56 Oxygen Delivery Method Room Air 09/19/24 13:56 [facility] Patient data External records reviewed:: [facility] previous records Clinical information provided by:: patient Social determinants that could affect healthcare access:: none Patient has the following chronic illnesses:: Recent cholecystectomy How is presenting disease/condition affected by chronic disease/condition?: exacerbated by Evaluation data The following diagnostics were reviewed and interpreted by me:: lab results and radiology exam(s) Lab and/or radiology exams considered but not ordered:: CBC shows a mild leukocytosis of 14.5 no anemia thrombocytopenia CMP shows a potassium of 3.2 no other significant electrolyte imbalances glucose at 121 total bili at 4.6 AST 278 ALT 667 alk phos of 215 The lipase of 39. CT of the abdomen shows pneumoperitoneum and no other acute finding. Interpretation Summary: Patient's case discussed with Dr. Shabazz regarding the patient's condition at this time requested an MRCP which is not available today we will hold the patient here overnight do an MRCP if its positive we will try and get Dr. Ghosh to do an ERCP otherwise she will be transferred. Patient is in agreement with this plan. Dr. Olsen saw the patient in the emergency room around 1700 is going to start her on [facility] hospitalist were consulted for pain and fluid management during her course of her stay in the emergency room. Medications Medications considered but not ordered:: None Medication administrations:: Medication Administration History Discontinued Medications Hydromorphone HCl (Hydromorphone Inj 2 Mg/Ml Vial) 1 mg IVP X1 ONE Stop: 09/19/24 14:08 Last Admin: 09/19/24 14:39 Dose: 1 mg Documented By: RIKA Hydromorphone HCl (Hydromorphone Inj 2 Mg/Ml Vial) 1 mg IV Q3HR ONE Stop: 09/19/24 17:30 Last Admin: 09/19/24 18:13 Dose: 1 mg Documented By: RIKA Sodium Chloride (Ns) 1,000 mls @ 100 mls/hr IV .Q10H GARCIA Stop: 10/19/24 15:27 Last Infusion: 09/19/24 18:15 Dose: 0 mls/hr Documented By: Admin: 09/19/24 16:14 Dose: 100 mls/hr Documented By: RIKA Lactated Ringer's (Lactated Ringers) 1,000 mls @ 125 mls/hr IV .Q8H GARCIA Stop: 10/19/24 17:29 Last Admin: 09/20/24 12:20 Dose: 125 mls/hr Documented By: Infusion: 09/20/24 11:11 Dose: Infused Documented By: Admin: 09/20/24 03:11 Dose: 125 mls/hr Documented By: Infusion: 09/20/24 03:08 Dose: Infused Documented By: Admin: 09/19/24 18:15 Dose: 125 mls/hr Documented By: RIKA Piperacillin Sod/Tazobactam (Sod 4.5 gm/ Sodium Chloride) 100 mls @ 200 mls/hr IV Q8HR [facility] Stop: 09/26/24 21:59 Last Infusion: 09/20/24 05:55 Dose: Infused Documented By: Admin: 09/20/24 05:23 Dose: 200 mls/hr Documented By: Infusion: 09/19/24 22:20 Dose: Infused Documented By: Admin: 09/19/24 21:49 Dose: 200 mls/hr Documented By: GREGG Ketorolac Tromethamine (Ketorolac Inj 30 Mg/Ml Vial) 30 mg IVP Q3HR PRN PRN Reason: PAIN SCALE 4-6 (Moderate Stop: 09/24/24 17:28 Last Admin: 09/20/24 12:21 Dose: 30 mg Documented By: Admin: 09/20/24 09:36 Dose: 30 mg Documented By: Admin: 09/20/24 05:23 Dose: 30 mg Documented By: Admin: 09/19/24 19:19 Dose: 30 mg Documented By: GREGG Morphine Sulfate (Morphine Sulf Inj 10 Mg/Ml Vial) 4 mg IVP X1 ONE Stop: 09/19/24 15:23 Last Admin: 09/19/24 16:10 Dose: 4 mg Documented By: RIKA Morphine Sulfate (Morphine Sulf Inj 10 Mg/Ml Vial) 2 mg IVP Q3HR PRN PRN Reason: PAIN SCALE 4-6 (Moderate Last Admin: 09/20/24 13:53 Dose: 2 mg Documented By: Admin: 09/20/24 03:13 Dose: 2 mg Documented By: Admin: 09/19/24 22:27 Dose: 2 mg Documented By: GREGG Ondansetron HCl (Ondansetron Inj 2 Mg/Ml Inj 2 Ml) 4 mg IV X1 ONE; Protocol Stop: 09/19/24 14:08 Last Admin: 09/19/24 14:39 Dose: 4 mg Documented By: RIKA Ondansetron HCl (Ondansetron Inj 2 Mg/Ml Inj 2 Ml) 4 mg IV X1 ONE; Protocol Stop: 09/19/24 21:37 Last Admin: 03/02/25 21:48 Dose: 4 mg Documented By: GREGG None Consultations Consultation(s) initiated? (list below): No Diagnosis Differential Diagnosis ED Complaint MDM: Choledocholithiasis gallbladder fossa abscess cellulitis Most likely diagnosis given after review of the tests above:: Choledocholithiasis Admission Indicated Admission indicated?: indicated Explain why admission is indicated or not indicated:: Transfer Admission Request Was there a request for admission?: No Disposition Plan Disposition Plan: Transfer Medical Decision Making Differential Diagnosis Differential Diagnosis: Choledocholithiasis gallbladder fossa abscess cellulitis Lab Data 09/19/24 14:45 09/19/24 14:45 Labs: Lab Results 09/19/24 09/20/24 Range/Units 14:45 04:42 WBC 14.6 H (3.6-11.0) Thou/mm3 RBC 4.70 (4.00-5.20) Miln/mm3 Hgb 14.0 (12.0-16.0) g/dL Hct 40.4 (36.0-46.0) % MCV 86 (80-100) fL MCH 29.8 (25.0-35.0) pg MCHC 34.7 (31.0-37.0) g/dl RDW Std Deviation 39.3 (36.4-46.3) fL Plt Count 238 (140-440) Thou/mm3 Neut % (Auto) 83 H (37-80) % Lymph % (Auto) 9 L (10-50) % Wood % (Auto) 8 (0-12) % Eos % (Auto) 0 (0-10) % Baso % (Auto) 0 (0-2.5) % Neut # (Auto) 12.1 H (1.8-7.7) Thou/mm3 Lymph # (Auto) 1.3 (1.0-4.8) Thou/mm3 Wood # (Auto) 1.2 H (0.0-0.8) Thou/mm3 Eos # (Auto) 0.0 (0.0-0.5) Thou/mm3 Baso # (Auto) 0.0 (0.0-0.2) Thou/mm3 Immature Gran # (Auto) 0.06 H (0.00-0.00) Thou/mm3 Absolute Nucleated RBC 0.00 (0.00-0.00) Thou/mm3 Immature Gran % 0 (0-0) % Nucleated RBC % 0 (0) /100 WBC Sodium 140 (136-145) mMol/L Potassium 3.2 L (3.4-5.1) mMol/L Chloride 105 (98-107) mMol/L Carbon Dioxide 22.9 (20.0-31.0) mMol/L Anion Gap 12 (7-16) BUN 14 (9-23) mg/dL Creatinine 0.8 (0.6-1.3) mg/dL Estim Creat Clear Calc 126.2 (>60) mL/min eGFR > 60 (60 - ) See Note BUN/Creatinine Ratio 18 (12-20) Ratio Glucose 121 H (74-106) mg/dL Calculated Osmolality 280 (275-295) Calcium 9.2 (8.3-10.6) mg/dL Corrected Calcium 9.2 (8.5-10.1) mg/dL Total Bilirubin 4.6 H D 5.3 H D (0.3-1.2) mg/dL Direct Bilirubin 3.6 H (0.0-0.3) mg/dL AST 278 H 166 H (0-34) U/L ALT 667 H* 540 H* (10-49) U/L Alkaline Phosphatase 215 H D 208 H (46-116) U/L Total Protein 7.4 6.9 (5.7-8.2) gm/dL Albumin 4.3 D 4.1 (3.5-5.0) gm/dL Globulin 3.1 (2.3-3.5) gm/dL Albumin/Globulin Ratio 1.4 (1.2-2.2) Lipase 39 (12-53) U/L Discharge Plan Plan Patient Disposition: Xfer Acute Care [facility] Facility Pt Being Transferred to: [facility] Service Needed for Transfer: Gastroenterology Patient condition on transfer: Stable Prescriptions/Referrals Prescriptions/Med Rec: No Action ondansetron 4 mg tablet,disintegrating 4 mg PO Q8H Qty: 14 0RF meloxicam 7.5 mg tablet 7.5 mg PO QDAY Qty: 10 0RF hydrocodone-acetaminophen 5-325 mg tablet 1 tab PO Q6H MDD 4 PRN (Reason: pain) Qty: 20 0RF Vitamin 27 mg iron- 800 mcg Tablet 1 tab PO QDAY Referrals: Murray French MD [Primary Care Provider] - In 1 week Problem List Clinical Impression: Choledocholithiasis Patient/Caregiver Discharge Instructions Print Language: Frisian Stand Alone Forms: Katina Award Info., Patient Portal Info Letter PA/SIDE LASTER TACK Supervising Physician PA/SIDE LASTER TACK Supervising Physician: Filemon Hernandez ENP
[2024-09-19 17:44] VITALS: BP 167/98; PULSE 59; RESP 18; TEMP 37.1; O2SAT 97; O2SAT 99
[2024-09-19] MEDS: HYDROmorphone INJ 2 MG/ML VIAL 1 MG IV (18:13)
[2024-09-19] MEDS: RINGERS LACTATED 1000 ML 1,000 ML 125 ML IV (18:15)
[2024-09-19 19:15] VITALS: BP 146/96; O2SAT 97
[2024-09-19] MEDS: KETOROLAC INJ 30 MG/ML VIAL IVP (19:19)
--- NOTE | 2024-09-19 19:21 | PC.NURSE ---
pt resting quietly. Pts is at bedside. Appears in no acute disress. comfort measurs offered. pt informed that she will be here until morning when she is scheduled for MRI.
[2024-09-19] MEDS: PIPER/TAZO INJ 4.5 GM in SODIUM CHLORIDE 0.9% (POP) 100 ML IV (21:49)
--- NOTE | 2024-09-19 22:09 | PC.NURSE ---
co nausea. md aware and meds ordered.
[2024-09-19 22:14] VITALS: BP 148/90; PULSE 54; RESP 18; TEMP 36.6; O2SAT 98
[2024-09-19] MEDS: MORPHINE SULF INJ 10 MG/ML VIAL 2 MG IVP (22:27)
--- NOTE | 2024-09-19 23:00 | PD.EDADDENDU ---
Emergency Room Addendum Addendum Narrative: 2300: Care assumed from Filemon Hernandez NP. Past medical, surgical, social and family history reviewed. Vitals and home medications reviewed. Results and treatment plan discussed. I will assume the care of the patient at this time and will follow the patient, pending MRCP in the AM. Please refer to the emergency department record for history and examination from initial visit. The patient was placed in ED observation care at 09/20/24 at 2300 hours. The patient was placed in ED observation care because of pending MRCP. The patients past medical history, social history, and family history were reviewed. 0600: Care signed out to Dr. Tapia (emergency physician). Past medical, surgical, social and family history reviewed. Vitals and home medications reviewed. Results and treatment plan discussed. They will assume the care of the patient at this time and will follow the patient, pending MRCP in the morning. At this time, observation has ended.
--- NOTE | 2024-09-20 | XR_ITS ---
MRI abdomen, without contrast. MRCP Date and time of exam: August 23, 2024 at 0727 hours INDICATIONS: Status post cholecystectomy September 18, 2024 with onset abdominal pain yesterday Technique: Multiple axial and coronal images of the abdomen have been obtained with the Siemens 1.5T MRI scanner. Images obtained included T1 weighted transverse images, T2-weighted transverse images, T2-weighted transverse images fat-suppressed, T2 weighted haste fat suppressed transverse images, T1 weighted images, in and out of phase images, T2-weighted coronal images, breath hold, T2 weighted haze coronal images as well as T2 weighted coronal thick slab images, MRCP. Findings: No focal liver lesions Absent gallbladder Common hepatic common bile duct 7 mm Sludge is layered in the common bile duct axial image 27 Negative for pancreatitis No free fluid in the abdomen No hydronephrosis IMPRESSION: Sludge is layered in the common bile duct
[2024-09-20 01:33] VITALS: BP 170/103; PULSE 59; RESP 17; TEMP 36.7; O2SAT 97
[2024-09-20] MEDS: RINGERS LACTATED 1000 ML 1,000 ML 125 ML IV ×2 (03:11→12:20)
[2024-09-20] MEDS: MORPHINE SULF INJ 10 MG/ML VIAL 2 MG IVP ×2 (03:13→13:53)
--- NOTE | 2024-09-20 03:16 | PC.NURSE ---
pt woke up with pain returning. med given
[2024-09-20 03:57] VITALS: BP 161/93; PULSE 62; RESP 17; TEMP 37.1; O2SAT 96
[2024-09-20] MEDS: KETOROLAC INJ 30 MG/ML VIAL IVP ×3 (05:23→12:21)
[2024-09-20] MEDS: PIPER/TAZO INJ 4.5 GM in SODIUM CHLORIDE 0.9% (POP) 100 ML IV (05:23)
[2024-09-20 05:50] LABS: Alanine Aminotransferase 540 U/L (10-49); Albumin, Serum 4.1 gm/dL (3.5-5.0); Alkaline Phosphatase 208 U/L (46-116); Aspartate Amino Transferase 166 U/L (0-34); Bilirubin,Direct 3.6 mg/dL (0.0-0.3); Bilirubin,Total 5.3 mg/dL (0.3-1.2); Total Protein 6.9 gm/dL (5.7-8.2)
[2024-09-20 05:55] VITALS: BP 155/95; PULSE 57; RESP 18; TEMP 36.9; O2SAT 97
--- NOTE | 2024-09-20 07:06 | PC.NURSE ---
Spoke to Dr. Bonilla via phone. Made aware of lab results. No new orders received at this time.
--- NOTE | 2024-09-20 07:21 | EDNOTE_ITS ---
Emergency Room Addendum Addendum Narrative: 0600: Care assumed from Dr. Ramsey, the previous shift emergency physician. Past medical, surgical, social and family history reviewed. Vitals and home medications reviewed. I will assume the care of the patient at this time, pending MRCP and final disposition. Please refer to the emergency department record for history and examination from initial visit.? Nursing notes reviewed by me. Vital signs reviewed by me. [address] medical records reviewed by me. Patient was evaluated here on 09/17/2024 for right upper quadrant pain. Patient had known history of cholelithiasis and underwent Laparoscopic cholecystectomy with Dr. Shabazz on 09/18/2024 and discharged home the same day. Patient had returned later that night for persistent abdominal pain. Labs performed yesterday show markedly elevated liver enzymes and bilirubin. 1015: I spoke with transfer nurse Tierney. Discussed plan to transfer for ERCP. 1145: I spoke with GI Dr. Sapp and [facility]. Discussed patients PMHx, HPI, ED course, exam findings, labs, and radiology results. He accepts the patient for admission. RADIOLOGY ___ Ordering Physician: Filemon Hernandez NP Date of Service: 09/20/24 Procedure(s): MR MRCP Accession Number(s): [id number] cc: Murray French MD; Filemon Hernandez NP; Brando Allen MD~ MRI abdomen, without contrast. MRCP Date and time of exam: August 23, 2024 at 0727 hours INDICATIONS: Status post cholecystectomy September 18, 2024 with onset abdominal pain yesterday Technique: Multiple axial and coronal images of the abdomen have been obtained with the Siemens 1.5T MRI scanner. Images obtained included T1 weighted transverse images, T2-weighted transverse images, T2-weighted transverse images fat-suppressed, T2 weighted haste fat suppressed transverse images, T1 weighted images, in and out of phase images, T2-weighted coronal images, breath hold, T2 weighted haze coronal images as well as T2 weighted coronal thick slab images, MRCP. Findings: No focal liver lesions Absent gallbladder Common hepatic common bile duct 7 mm Sludge is layered in the common bile duct axial image 27 Negative for pancreatitis No free fluid in the abdomen No hydronephrosis IMPRESSION: Sludge is layered in the common bile duct Dictated By:Brando Allen MD Signed By: <Electronically signed by Brando Allen MD in OV>09/20/24 0950 ___
--- NOTE | 2024-09-20 10:28 | PC.CC ---
Addendum entered by Tierney Perales RN 09/20/24 12:58: Chart printed, disk made, all consents signed, transfer set up and eta is 1400 Addendum entered by Tierney Perales RN 09/20/24 11:52: Pt accepted by Luli to [facility] under Dr. Sam Sapp report to be called to [phone] Addendum entered by Tierney Perales RN 09/20/24 11:08: 1053- Luli from [facility] called back and spoke to Dr. Tapia Original Note: 1025-chart faxed to [facility], Spoke to Luli at [facility] transfer center who states she will review packet and call back 1000-made aware that patient needs transfer for higher level of care needs GI for ERCP
[2024-09-20 11:48] VITALS: BP 154/90; PULSE 60; RESP 16; TEMP 36.9; O2SAT 97
== END 2024-09-20 14:12 | disposition short-term general hospital (02) ==
PROVIDERS: Physician Assistant; Surgery; Emergency Provider Emergency Medicine; PCP Family Medicine
DX: K80.50 Calculus of bile duct without cholangitis or cholecystitis without obstruction (principal)
CPT/HCPCS: 36415; 74177; 80053; 80076; 83690; 85025; 96361; 96365; 96375; 96376; 99285; A4649; J1885; J2270; J2405; J2543; J3490; J7030; J7120; Q9967; S8037; 74181

== ENCOUNTER → 2024-12-02 | Outpatient (CLI) | payer MEDICAID, SELFPAY ==
--- NOTE | 2024-12-02 14:15 | XR_ITS ---
Examination: MRI lumbar spine without contrast Date and time of exam: 03/04/2025 1501 hours INDICATIONS: Low back pain radiating down the right leg one year Technique: Multiple MRI axial and sagittal sections lumbar spine. Sagittal T2-weighted images, TR 3500, TE 118 T1 weighted transverse sections, TR 688 T8.5, T2-weighted sagittal sections T1 weighted sagittal sections TR 621, TE 30 T2 axial sections, TR 4, 190, TE 84. Findings: Adequate alignment lumbar vertebral bodies Advanced disc narrowing L5-S1 No spondylolisthesis L5-S1 5 mm central right paracentral disc bulge mildly displacing the right S1 nerve root L4-L5 2 mm central lumbar disc bulge More cephalad levels unremarkable IMPRESSION: Advanced degenerative disc disease L5-S1 L5-S1 5 mm central right paracentral disc bulge displacing the right S1 nerve root
--- NOTE | 2024-12-02 14:28 | XR_ITS ---
Termination: Lumbar spine 3 views TECHNIQUE: AP lateral coned lateral lower lumbar spine 3 views Date and time: December 02, 2024 1544 hours INDICATIONS: Low back pain post one year ago. FINDINGS: Adequate alignment lumbar vertebral bodies Advanced disc narrowing L5-S1 No spondylolisthesis IMPRESSION: Advanced degenerative disc disease L5-S1
== END | disposition home or self-care (01) ==
LOC: SMRI 13:50
PROVIDERS: PCP Physician Assistant; Referring Provider Physician Assistant; Visit Provider Physician Assistant
DX: M51.370 Other intervertebral disc degeneration, lumbosacral region with discogenic back pain only (principal)
CPT/HCPCS: 72100; 72148

== ENCOUNTER 2025-04-25 12:59 | Outpatient (RCR) | payer MEDICAID, SELFPAY ==
--- NOTE | 2025-04-25 13:12 | PT.OIERPT ---
PT OP Initial Eval Patient Information Outpatient Physical Therapy Treatment Date: 04/25/25 Visit Reasons: Back pain Medical Diagnosis: G89.29 M51.27 M51.372 Start of Care: 04/25/25 Date of Onset: 2 yrs ago Smoking Status Smoking Status: Never smoker Initial Assessment Subjective: Pt is 34 yr old female who c/o LBP since giving to her dtr 2 yrs ago. The pain is daily and runs into the R LE and sometimes the L LE. This pain limits bending, lifting and HH chore tolerances. PMH: cholesectomy, x1, 5 children total Imaging: Xray and MRI in EMR shows Advanced degenerative disc disease L5-S1 ?? Pt goal: to learn the proper mechanics for bending to do HH chores with less pain Objective: Trunk ArOM: ? B SB 50% of normal with pain to the L ? Extension: 20% with pain around L4-5, L5-S1 ? Flexion: 3 from floor with LBP ? B rotation: 60% with pain ? TTP: moderate paraspinals L5-S1 ? Neuro: R SLR: positive Assessment: Pt presents with trunk extension and flexion sensitivity that limits bending and lifting tolerances consistent with imaging that reveals advanced DDD L5-S1. Pt not likely going to benefit from skilled therapy due to advanced condition and has poor rehab potential to meet goals due to almost bone on bone of L5 on S1. Pt wants to learn HEP so she was given HEP printout and she will try that at home. PT recommends orthopedic evaluation. Short Term and [employer] Goals Eval and D/C Treatment Plan Eval and D/C Certification Dates: 04/25/25 to 07/24/25 Procedure Charges OP PT Eval Mod Complex 30 minutes: Yes
== END 2025-05-20 23:59 | disposition home or self-care (01) ==
LOC: CPTX 12:59
PROVIDERS: PCP Chiropractor; Referring Provider Chiropractor; Visit Provider Chiropractor
DX: M51.372 Other intervertebral disc degeneration, lumbosacral region with discogenic back pain and lower extremity pain (principal); G89.29 Other chronic pain
CPT/HCPCS: 97162

== ENCOUNTER 2025-07-14 12:27 | Emergency (ER) | payer MEDICAID, SELFPAY ==
[2025-07-14 12:52] VITALS: BP 145/74; PULSE 110; RESP 20; TEMP 37.4; O2SAT 97; BMI 35.4
--- NOTE | 2025-07-14 13:14 | EDNOTE_ITS ---
Upper Respiratory Inf. RME/HPI General Chief Complaint: Flu Like Symptoms Stated Complaint: Cough, GUTIERREZ, 13 weeks OB Time Seen by Provider: 07/14/25 12:41 Arrival date/time: 07/14/25 12:27 35-year-old female presents to the emergency department stating she has a cough, headache generalized body aches patient reports he is approximately 13 weeks Limitations: no limitations Related Data Home Medications ?Medication ?Instructions ?Recorded ?Confirmed vits no.[id number]-ferrous fum 1 tab PO QDAY 3 08/23/23 27 mg iron-folic acid 800 mcg tablet ( Vitamin) Previous Rx's ?Medication ?Instructions ?Recorded meloxicam 7.5 mg tablet 7.5 mg PO QDAY #10 tabs 08/22 01/12 ondansetron 4 mg disintegrating 4 mg PO Q8H #14 tabs 0 09/15/24 tablet hydrocodone 5 mg-acetaminophen 325 1 tab PO Q6H PRN pa in #20 tabs 09/18/24 mg tablet acetaminophen 500 mg capsule 1,000 mg (2 x 500 mg) PO Q8HR PRN 07/14/25 pain #30 caps Allergies Allergy/AdvReac Type Severity Reaction Status Date / Time No Known Allergies Allergy Verified 07/14/25 12:32 Review of Systems Review of Systems Systems Reviewed: All systems reviewed, normal except as documented Constitutional Constitutional: Reports system reviewed and no additional complaints, except as documented, Reports body ache(s), Reports chills, Reports fatigue, Reports fever(s) and Reports headache(s) Eyes Eyes: Reports system reviewed and no additional complaints, except as documented and Denies blurry vision ENT Ears, Nose, Mouth, and Throat: Reports system reviewed and no additional complaints, except as documented, Reports headache(s), Reports nasal congestion and Reports nasal discharge Cardiovascular Cardiovascular: Reports system reviewed and no additional complaints, except as documented, Denies chest pain and Denies dyspnea Respiratory Respiratory: Reports system reviewed and no additional complaints, except as documented, Reports chest congestion, Reports cough and Denies dyspnea Gastrointestinal Gastrointestinal: Reports system reviewed and no additional complaints, except as documented and Denies abdominal pain Integumentary/Breasts Skin/Breast: Reports system reviewed and no additional complaints, except as documented and Denies rash Neurologic Neurologic: Reports system reviewed and no additional complaints, except as documented, Reports as per HPI and Reports headache(s) Endocrine Endocrine: Reports fatigue Past Medical History Past Medical History NEUROLOGIC: Negative Neurological Disorders or Seizures CARDIAC: Negative Cardiac Disorders or Congestive Heart Failure RESPIRATORY: Negative Chronic Obstructive Pulmonary Disease (COPD) or Asthma GASTROINTESTINAL: Negative Gastrointestinal Disorders, Hepatitis or Colorectal Cancer GENITOURINARY: Negative Genitourinary Disorders, Renal Disease or Prostate Cancer REPRODUCTIVE: Positive Genital Herpes and Previous Pregnancies; Negative Breast Cancer, Endometriosis, Pelvic Inflammatory Disease, Testicular Cancer or Uterine Prolapse MUSCULOSKELETAL: Positive Musculoskeletal Disorders; Negative Bone Cancer ENDOCRINE: Negative Endocrine Disorders, Diabetes Mellitus Type 1 or Diabetes Mellitus Type 2 HEMATOLOGIC: Positive Blood Disorders, Anemia and Clotting Problems; Negative Leukemia, Hemophilia, Thalassemia or Sickle Cell Disease PSYCHO/SOCIAL: Positive Depression OTHER HISTORY: Positive Chicken Pox; Negative Hospitalization, Autoimmune Disease, Down Syndrome, Developmental Delay, Shingles, Falls, Blood Transfusions, Blood Transfusion Reaction, Anesthesia Reactions, Organ Transplant, Chemotherapy, Radiation Therapy, Hyperbaric Therapy, MRSA, VRSA, Vancomycin-Resistant Enterococci, Human Immunodeficiency Virus (HIV), Measles, Mumps, Rubella (Upper Sor[place] Measles), Pertussis, Clostridium Difficile, Cancer, Breast Cancer, Cervical Cancer, Colorectal Cancer, Lung Cancer, Ovarian Cancer, Prostate Cancer or Testicular Cancer Family History FAMILY HISTORY: Positive Family Cardiac Disorders; Negative Family Psychiatric Problems, Family Respiratory Disorders, Family Gastrointestinal Problems, Family Cancer, Family Surgery or Family Anesthesia Reaction Surgical History SURGICAL: Positive Oral Surgery; Negative Section or Organ Transplant Social History SMOKING STATUS: Never smoker SECOND HAND EXPOSURE: No ED Exam General Limitations: Present no limitations General appearance: Present alert and in no apparent distress Head Head exam: Present atraumatic Eye Eye exam: Present normal appearance, PERRL and EOMI ENT ENT exam: Present normal exam, normal oropharynx and mucous membranes moist Neck Neck exam: Present normal inspection, full ROM and trachea midline Chest Chest inspection: Present normal inspection and symmetric chest wall rise Respiratory Respiratory exam: Present normal lung sounds bilaterally Cardiovascular Cardiovascular exam: Present regular rate, normal rhythm and normal heart sounds Abdominal Exam Abdominal exam: Present soft and normal bowel sounds Extremities Exam Extremities exam: Present normal inspection and full ROM Back Exam Back exam: Present normal inspection and full ROM Neurological Exam Neurological exam: Present alert, oriented X3 and CN II-XII intact Psychiatric Psychiatric exam: Present normal affect and normal mood Skin Skin exam: Present warm, dry, intact and normal color Course Quality Measures none Orders Category Date Time Status Bedside Influenza A&B Antigen Test NOW Care 07/14/25 12:42 Completed Acetaminophen Tab [Tylenol ES Tab] Med 07/14/25 12:54 Discontinued 1,000 mg PO X1 ONE Vital Signs Vital signs: Vital Signs Temperature 99.3 F 07/14/25 12:52 Pulse Rate 110 H 07/14/25 12:52 Respiratory Rate 20 07/14/25 12:52 Blood Pressure 145/74 H 07/14/25 12:52 Pulse Oximetry (%) 97 07/14/25 12:52 Oxygen Delivery Method Room Air 07/14/25 12:52 O2 saturation 97% room air within normal limits Upper Respiratory Infection MDM Narrative MDM Narrative:: 35-year-old female presents to the emergency department stating she has a cough, headache generalized body aches patient reports he is approximately 13 weeks Clinically patient well-appearing does not appear ill or toxic in no acute distress Symptoms are highly consistent with influenza Patient check for the flu which came back positive which is highly consistent with symptoms patient has sick contacts at home Explained to the patient as her symptoms persist or worsen she should return for reevaluation otherwise follow-up with [facility] as discussed Patient data External records reviewed:: [facility] previous records Clinical information provided by:: patient Social determinants that could affect healthcare access:: none Patient has the following chronic illnesses:: None How is presenting disease/condition affected by chronic disease/condition?: no chronic disease Evaluation data The following diagnostics were reviewed and interpreted by me:: lab results Lab and/or radiology exams considered but not ordered:: Lab obtained Interpretation Summary: Reviewed by me Medications / Prescriptions Medications or Prescriptions considered but not ordered:: Given Medication administrations:: Medication Administration History Discontinued Medications Acetaminophen (Acetaminophen 500 Mg Tablet) 1,000 mg PO X1 ONE Stop: 07/14/25 12:55 Last Admin: 07/14/25 13:30 Dose: 1,000 mg Documented By: Given Consultations Consultation(s) initiated? (list below): No Diagnosis Upper Respiratory Differential Diagnosis: upper respiratory infection, viral infection and bronchitis Most likely diagnosis given after review of the tests above:: URI, influenza Admission Indicated Admission indicated?: not indicated Admission Request Was there a request for admission?: No Disposition Plan Disposition Plan: Discharge Discharge Attestation Discharge Attestation: The patient and all family members were given an opportunity to ask questions and understood the discharge instructions. Discharge instructions specifically effects, indications for sooner follow up or return to the emergency department, and the expected course of current diagnosis. Patient condition: Stable Discharge Plan Plan Patient Disposition: HOME (Self Care) Discharge Disposition comment: Stable Prescriptions/Referrals Prescriptions/Med Rec: New acetaminophen 500 mg capsule 1,000 mg PO Q8HR PRN (Reason: pain) Qty: 30 0RF No Action ondansetron 4 mg tablet,disintegrating 4 mg PO Q8H Qty: 14 0RF meloxicam 7.5 mg tablet 7.5 mg PO QDAY Qty: 10 0RF hydrocodone-acetaminophen 5-325 mg tablet 1 tab PO Q6H MDD 4 PRN (Reason: pain) Qty: 20 0RF Vitamin 27 mg iron- 800 mcg Tablet 1 tab PO QDAY Problem List Clinical Impression: Influenza A Patient/Caregiver Discharge Instructions Education Materials: ED Influenza (Adult) Additional Instructions: Please follow up with your primary care doctor in the next 24-48hrs for any worsening symptoms return here immediately Print Language: Nigerien Stand Alone Forms: Katina Award Info., Patient Portal Info Letter PA/CENTRAL SUPPLY ASSISTANT Supervising Physician PA/CENTRAL SUPPLY ASSISTANT Supervising Physician: Dr. lujan
[2025-07-14] MEDS: ACETAMINOPHEN 500 MG TABLET 1000 MG PO (13:30)
== END 2025-07-14 13:46 | disposition home or self-care (01) ==
LOC: SERX 13:38
PROVIDERS: Emergency Provider Nurse Practitioner Primary Care; PCP Family Medicine
DX: O99.511 Diseases of the respiratory system complicating pregnancy, first trimester (principal); J10.1 Influenza due to other identified influenza virus with other respiratory manifestations; Z3A.13 13 weeks gestation of pregnancy
CPT/HCPCS: 87502; 99282; A9270